=== PATIENT | male | born 1980 | race African-American/Black ===

== ENCOUNTER 2017-03-22 00:07 | Inpatient (IN) | payer MEDICARE ==
[2017-03-22] MEDS ORDERED: Ondansetron HCl/PF 4 MG/2 ML Vial ONE (00:32)
[2017-03-22] MEDS ORDERED: Ondansetron HCl/PF 4 MG/2 ML Vial IVP PRN (02:29)
[2017-03-22] MEDS ORDERED: D5 1/2 NS w/20 mEq KCL 1,000 ML IV SCH (02:29)
[2017-03-22] MEDS ORDERED: Ondansetron ODT 4 MG TAB SL PRN (02:29)
[2017-03-22] MEDS ORDERED: Ketorolac Tromethamine 30 MG/ML VIAL IVP PRN (02:31)
[2017-03-22] MEDS ORDERED: Bisacodyl 10 MG SUPP PR PRN (02:53)
[2017-03-22 02:56] VITALS: BMI 24.4
[2017-03-22] MEDS ORDERED: cefTRIAXone\\ROCEPHIN 1 GM in Sodium Chloride 0.9% 100 ML IVPB SCH (03:00)
[2017-03-22] MEDS: metroNIDAZOLE 500 MG in Premix Bag 1 BAG IVPB SCH ×2 (04:19→12:01)
[2017-03-22] MEDS: D5 1/2 NS w/40 mEq KCL 1,000 ML IV SCH ×3 (04:20→23:12)
[2017-03-22 05:37] LABS: #Basophils 0.1 thou/uL (0.0-0.2); #Eosinphils 0.1 thou/uL (0.0-0.7); #Lymphocytes 2.1 thou/uL (1.20-3.40); #Monocytes 1.1 thou/uL (0.11-0.59); #Neutrophils 10.9 thou/uL (1.40-6.50); %Basophils 0.5 % (0.0-1.0); %Eosinophils 0.5 % (0.0-10.0); %Lymphocytes 14.5 % (21.0-51.0); %Monocytes 7.9 % (0.0-10.0); Hematocrit 42.2 % (42.0-52.0); Mean Platelet Volume 7.7 fL (7.4-10.4); Red Blood Cell (RBC) Count 4.69 mill/uL (4.70-6.10); White Blood Cell (WBC) Count 14.2 thou/uL (4.8-10.8)
[2017-03-22 05:56] LABS: ALT (SGPT) Less than 7 U/L (8-55); AST (SGOT) 9 U/L (5-34); Alkaline Phosphatase 76 U/L (40-150); Anion Gap 13 mmol/L (10-20); BUN (Urea Nitrogen) 10 mg/dL (8.9-20.6); Bilirubin, Total 0.5 mg/dL (0.2-1.2); Calc. Creatinine Clearance 144 mL/min (70-130); Calcium 8.7 mg/dL (7.8-10.44); Carbon Dioxide 24 mmol/L (22-29); Chloride 108 mmol/L (98-107); Estimated GFR-MDRD Greater than 90; Globulin 3.1 g/dL (2.4-3.5); Protein, Total 6.6 g/dL (6.0-8.3)
--- NOTE | 2017-03-22 10:31 | HP-2 ---
DATE OF ADMISSION: 03/22/2017 ATTENDING PHYSICIAN: Dr. Chai Funez CODE STATUS: Full code. PRIMARY CARE PHYSICIAN: Evelyn berman. RESIDENT: [email or web address] - Dr. Madelaine Ziegler HISTORIAN: Patient. CHIEF COMPLAINT: Abdominal pain. HISTORY OF PRESENT ILLNESS: A 37-year-old male presents with left lower quadrant abdominal pain fo r 3-4 months, worsening constipation and obstipation over the past day. The patient was transferred from [place]. The patient endorses night sweats, subjective fevers and nausea and vomiting. The patient has vomited over 9 times today, nonbloody. ER: The patient received Zofran, Flagyl, Levaquin, and 40 of KCl and Dilaudid in the [place] [facility]. PAST MEDICAL HISTORY: Denies. PAST SURGICAL HISTORY: Left knee surgery. ALLERGIES: No known drug allergies. MEDICATIONS: No medications. FAMILY HISTORY: No family history of colorectal cancer. There is a family history of diabetes and hypertension in his mom. SOCIAL HISTORY: The patient smokes 1 pack per day. Denies alcohol use, denies drug use. REVIEW OF SYSTEMS: GENERAL: Positive for fevers and chills. Negative for weight changes, appetite changes, sleep nobles ges. RESPIRATORY: Denies cough, congestion, shortness of breath. CARDIOVASCULAR: Denies chest pain, palpitations, edema. GI: Endorses nausea, vomiting x9 times today, nonbloody. Denies diarrhea. Endorses constipation. Endorses abdominal pain, endorses obstipation. Last BM was yesterday. Endorses hiccups. Endorses thin pencil-like stools. : Denies incontinence, denies dysuria, denies polyuria. SKIN: Denies rashes or lesions. MUSCULOSKELETAL: Denies pain, tenderness and stiffness. NEURO: Denies weakness, numbness. PSYCHIATRIC: Denies anxiety, depression. The patient last ate in the morning on 03/21/2017. OBJECTIVE: VITAL SIGNS: Blood pressure 167/106, pulse 72, respiratory rate 16, T-max 98.2, pulse ox 100% on ro om air, current weight 84 kilograms. GENERAL: Alert and oriented x3, no apparent distress. Appropriately interactive. EYES: PERRLA, EOMI. ENT: Nasal mucosa within normal limits. Oropharynx within normal limits. NECK: Supple, no lymphadenopathy, no thyromegaly. CARDIOVASCULAR: Regular rate and rhythm. No murmur, no gallops. RESPIRATORY: Within normal limits, no retractions. Clear to auscultation bilaterally. SKIN: Warm and dry. ABDOMEN: Soft, mild left lower quadrant tenderness to palpation. Hypoactive bowel sounds. EXTREMITIES: No clubbing, cyanosis. MUSCULOSKELETAL: Structurally within normal limits. NEUROLOGIC: No focal deficits. GCS 15. PSYCH: Appropriate. LABORATORY DATA: 1. CBC; white blood cell count 14.4, hemoglobin 15.1, hematocrit 45.1, platelets 313. 2. Chemistries; sodium 144, potassium 2.9, chloride 108, bicarb 24, BUN 84, creatinine 0.9, glucose 119. 3. AST 13, ALT less than 6, alkaline phosphatase 97, total bilirubin 0.5, calcium 9.5, GFR greater than 90. 4. UA negative for blood, protein, leukocyte esterase, nitrites, ketones, glucose, red blood cells, white blood cells and bacteria. IMAGING: CT of the abdomen; sigmoid mass versus infection visualized in the sigmoid colon. Psoas m ass visualized, dilated colon proximal to mass in the sigmoid colon, no free fluid or lymphadenopath y. ASSESSMENT AND PLAN: 1. A 37-year-old male with no past medical history who presents with abdominal pain in the left low er quadrant for 4 months with a mass on CT, admitted for sigmoid mass, likely colorectal cancer. 2. Sigmoid mass, likely colorectal cancer. Consult GI and General Surgery in the morning, n.p.o. a t midnight for colonoscopy in the morning. Pain control with morphine q.4 h. and Zofran for nausea. 3. Hypokalemia at 2.9 secondary to vomiting. Started on D5 half normal saline plus 40 KCl fluids a nd KCl was repleted in [place]. Follow up labs in the morning. 4. Tobacco abuse, counseled on cessation.
--- NOTE | 2017-03-22 11:34 | PDOC.EVN ---
Attending Addendum - Attending Addendum I personally evaluated the patient and discussed the management with Dr. Emeka Ziegler. I agree with the History, Examination, Assessment and Plan documented in her History and Physical with any addition or exceptions noted below. Patient with new diagnosis of sigmoid colon mass versus less likely infection. Patient will be continued on antibiotic therapy for now. GI and General Surgery have been consulted. We will attempt to have CT images loaded into our system. No major evidence of infection or signs of systemic infection at this time. Will maintain pain control as needed and await further recs from GI/Surg.
--- NOTE | 2017-03-22 12:18 | CON ---
DATE OF CONSULTATION: 03/22/2017 REQUESTING PHYSICIAN: Dr. Cali Art. HISTORY OF PRESENT ILLNESS: This is a 37-year-old -[place] man who was transferred from an [facility] in [place] to [facility] yesterday. The patient arrived complaining of intermittent left lower quadrant abdominal pain, which has been present over the last 3-4 months. This has been associated with constipation. Over the last 24 hours; however, the patient reports unrelenting left lower quadrant abdominal pain associated with bloating and obstipation. He reports multiple episodes of nonbilious and nonbloody emesis about 8-9 times. Last bowel movement was 3 days ago. Last time he passed gas was also about 3 days ago. He admits to some chills, but no fevers. He denies any unexplained weight loss. He reports passing dark tarry stool over the last 3-4 months. The caliber of his stool has been ribbon like for about the same duration. PAST MEDICAL HISTORY: Denies any previous medical problems. PAST SURGICAL HISTORY: He denies any previous surgeries except for left knee surgery many years ago from a football injury. SOCIAL HISTORY: He is single. He is employed in the construction business. He admits to smoking 1 pack of cigarettes per day and has done so for about 15 years. He admits to occasional intake of ethanol in moderate amounts and denies any illicit drug abuse. FAMILY HISTORY: Notable for diabetes mellitus and essential hypertension in his mother. He denies any family history of cancer or any gastrointestinal disorders. PREHOSPITALIZATION MEDICATIONS: None. ALLERGIES: Patient denies any known drug allergies. REVIEW OF SYSTEMS: Ten point review of systems essentially unremarkable except for as stated in past medical history and chief complaint. PHYSICAL EXAMINATION: GENERAL: This reveals a 37-year-old normally developed man who is otherwise coherent and interactive and appears stated age. The patient is alert and oriented x3, appears to be in no significant acute distress at the time of my evaluation. VITAL SIGNS: Include blood pressure 139/89, pulse 60, respirations 16, temperature is 98.6 degrees Fahrenheit, oxygen saturation 97% on room air. HEENT: Reveals normocephalic and atraumatic. The pupils are equal, round, and reactive to light and accommodation. Extraocular muscles are intact bilaterally. No sclerae icterus is present. Oral mucosa is pink and moist. No lesions are noted. NECK: Supple. No palpable lymphadenopathy or thyromegaly present. HEART: Reveals regular rate and rhythm, no murmurs or gallops auscultated. LUNGS: Clear to auscultation bilaterally. His breathing is regular and unlabored. ABDOMEN: Soft and moderately distended. He has moderate tenderness to palpation without any gross rebound tenderness present. He has got left lower quadrant fullness with palpation. Liver and spleen are otherwise nonpalpable below costal margins. NEUROLOGIC: Reveals no focal deficits present. PERTINENT LABORATORY DATA: Today includes CBC with 14,200 white blood cells, hemoglobin 13.2, hematocrit is 42.2, platelet count is 290,000. Metabolic profile: Sodium 142, potassium is 3.2, chloride is 108, bicarbonate 24, BUN 10 , creatinine 0.84, glucose 106, total bilirubin 0.5, AST and ALT are normal at 9 and less than 7 respectively. Serum albumin is normal at 3.5. I reviewed the accompanying CT scan of the abdomen and pelvis from [place], which reveals multiple distended loops of small and large bowel with a transition zone in the sigmoid colon associated with an obstructing sigmoid colonic mass and surrounding lymphadenopathy. IMPRESSION: Acute large bowel obstruction secondary to sigmoid colonic mass, likely neoplastic. RECOMMENDATION: 1. Gastroenterology evaluation to include possible flexible proctosigmoidoscopy and biopsy of the lesion. 2. If the patient is unable to achieve reasonable bowel prep, we will more than likely proceed with exploratory laparotomy, sigmoidectomy with end- colostomy. The above findings and plan has been discussed with the patient who indicates understanding of the information given. I answered all his questions. Thank you again, Dr. Art, for allowing me the opportunity to participate in the care of this patient. LUIGI
--- NOTE | 2017-03-22 12:33 | RAD ---
KUB: Comparison: None. History: Mass. FINDINGS: Single view of the abdomen shows air filled loops of both large and small bowel. This is predominate ly colon. Contrast is seen in the bladder from recent contrast examination. IMPRESSION: Air filled loops of bowel may be secondary to a partial or complete bowel obstruction. POS: [facility]
[2017-03-22 12:42] LABS: PTT 26.4 SEC (22.9-36.1); Prothrombin Time 14.3 SEC (12.0-14.7)
[2017-03-22] MEDS ORDERED: Fleet Enema 133 ML BOT FS SCH (13:45)
[2017-03-22] MEDS ORDERED: Morphine Sulfate 2 MG/ML SYRINGE SLOW IVP PRN (15:00)
[2017-03-22] MEDS ORDERED: Ondansetron HCl/PF 8 MG in Sodium Chloride 0.9% 50 ML IVPB PRN (15:01)
[2017-03-22] MEDS ORDERED: Midazolam HCl 2 mg/2 ml Vial ONE (15:38)
[2017-03-22] MEDS ORDERED: Fentanyl 100 MCG/2 ML VIAL ONE (15:39)
[2017-03-22] MEDS ORDERED: Propofol 200 MG/20 ML VIAL ONE (15:58)
--- NOTE | 2017-03-22 19:33 | CON ---
DATE OF CONSULTATION: 03/22/2017 REASON FOR CONSULTATION: Request for colonoscopy. HISTORY OF PRESENT ILLNESS: Mr. Reyes is a 37-year-old gentleman who was admitted to the hospital an d transferred from [facility] where he presented with several days of vomiting and lower abd ominal pain. He had apparently 9 episodes of vomiting yesterday. He had a CAT scan in the outside emergency room that showed an obstructing sigmoid mass with proximal colon dilation. The patient st ates he has not passed gas in 2 days. He has had a noticed change in bowel function for several mon ths and typically he will have alternating diarrhea and constipation with some occasional left lower quadrant pain, but yesterday the pain was more intense than usual. He denies any weight loss. He has had some rectal bleeding in the past. He has been seen by General Surgery who requested colonos copy as well. The patient states he last threw up about 3 hours ago. PAST MEDICAL HISTORY: None. PAST SURGICAL HISTORY: Left knee surgery from a football injury. ALLERGIES: None known. MEDICATIONS AT HOME: None. FAMILY HISTORY: Negative for colorectal cancer or intestinal malignancies. SOCIAL HISTORY: The patient smokes a pack a day. Does not use drink or use drugs. REVIEW OF SYSTEMS: Negative for dysphagia or odynophagia. PRESENT MEDICATIONS: Dulcolax, Lovenox subcu, D5 half normal with 40 of K. PHYSICAL EXAMINATION: GENERAL: Patient is resting in bed. LUNGS: Clear. HEART: Heart is regular without clicks or murmurs. ABDOMEN: Soft, mild fullness in the left lower quadrant. There is no rebound. There is no guardin g. RECTAL: Deferred. IMAGING: Review of films, x-ray from today shows distention of the colon and to a lesser degree, sm all bowel. CAT scan from yesterday from [place] is not available, talked to the radiologist, and there is high grade obstruction in the sigmoid colon. LABORATORY DATA: White count 14.2, hemoglobin 13, platelet count 290. Sodium 142, potassium 3.2, g lucose 106. ASSESSMENT: Obstipation symptoms for several weeks followed by symptoms now of obstruction with vom iting, dilated colon and small bowel on CAT scan, inability to pass any stool or flatus over 24 hour s. This is concerning for malignancy as he has no overt pain or fever to suggest diverticulitis-lik e process. PLAN: 1. NG tube. 2. IV fluids. 3. The patient will not tolerate bowel prep at this time. He has got a high grade obstruction in h is colon, both by films and history and symptoms. We will proceed with flexible sigmoidoscopy and b iopsy today.
--- NOTE | 2017-03-23 00:25 | OP ---
PROCEDURE: Flexible sigmoidoscopy. POSTPROCEDURE DIAGNOSES: Obstructing colon mass, likely neoplastic at 25 cm from the anorectal verg e, multiple biopsies were obtained. RECOMMENDATIONS: Await biopsies, the patient will need surgery for resection. I do not think he wi ll be able to tolerate a prep. PROCEDURE IN DETAIL: After the patient was informed of the risks, benefits, possible complications of endoscopy including perforation, bleeding, reactions to medication, and aspiration, informed cons ent was obtained. Initially, plans were made for colonoscopy with the patient's history is that of vomiting 9 to 10 times per day over the last 24 hours. He said he has had no flatus over 2 days and his imaging plain films this morning showed significantly distended colon. NG tube has been ordere d by General Surgery. I initially cancelled that, but after reviewing his films, I had the nurses maricruz cramer that, and they said only 100 mL came back from that. The patient was not felt to be able to to lerate a bowel prep and was at high risk for aspiration, perforation, enema was given, a flexible si gmoidoscopy was performed showing obstructing mass in the colon, which appears neoplastic at about 2 5 to 30 cm from the anorectal verge in the lower sigmoid colon, this was unable to be passed with th e endoscope, biopsies were obtained, the scope was removed. The patient tolerated the procedure wel l with no complications. We will defer to General Surgery for timing and plan of surgery.
--- NOTE | 2017-03-23 06:39 | PDOC.FM ---
- Subjective Subjective: Patient is resting in bed this morning. He says he has abdominal pain that comes and goes. He is currently not in any pain. He has a NG tube in place and tolerating that. He states he does not have any chest pain, sob, fever, or chills. He said he didn't feel a thing during his flex sig yesterday with GI. He is awaiting the results of the biopsies. - Objective Vital Signs & Weight: Vital Signs (12 hours) Temp Pulse Resp BP BP Pulse Ox 03/23/17 04:00 98.5 F 62 18 140/78 95 03/22/17 20:00 98.9 F 64 16 03/22/17 19:05 98.9 F 64 16 158/95 H 95 Weight Admit Weight 83.9 kg Weight 83.9 kg I&O: 03/21/17 03/22/17 03/23/17 06:59 06:59 06:59 Intake Total 450 2750 Output Total 450 1225 Balance 0 1525 Result Diagrams: 03/22/17 05:19 03/22/17 05:19 <Cali Art - Last Filed: 03/23/17 08:50> - Objective Vital Signs & Weight: Vital Signs (12 hours) Temp Pulse Resp BP BP Pulse Ox 03/23/17 08:00 98.8 F 65 16 97 03/23/17 07:38 98.8 F 65 16 131/75 97 03/23/17 04:00 98.5 F 62 18 140/78 95 Weight Admit Weight 83.9 kg Weight 83.9 kg I&O: 03/22/17 03/23/17 03/24/17 06:59 06:59 06:59 Intake Total 450 2750 Output Total 450 1225 Balance 0 1525 Result Diagrams: 03/23/17 08:14 03/23/17 08:14 <Chai Funez - Last Filed: 03/23/17 12:00> Phys Exam - Physical Examination HEENT: moist MMs Neck: no nodes, no JVD Respiratory: no wheezing, clear to auscultation bilateral Cardiovascular: RRR, no significant murmur Gastrointestinal: soft, non-tender, no distention hypoactive bowel sounds Musculoskeletal: no edema, pulses present Neurological: non-focal, normal sensation, moves all 4 limbs Psychiatric: normal affect, A&O x 3 Skin: no rash <Cali Art - Last Filed: 03/23/17 08:50> Dx/Plan (1) Mass of colon Code(s): K63.9 - DISEASE OF INTESTINE, UNSPECIFIED Status: Acute Plan: -Mass found on CT scan -GI found obstucting mass at 25cm from anorectal verge. -Biopsies pending. (2) Obstruction of colon Code(s): K56.60 - UNSPECIFIED INTESTINAL OBSTRUCTION Status: Acute Plan: -NG tube placed -NPO -Pending biopsies -General surgery will plan for resection. - Plan Plan: Patient likely has a neoplasm pending biopsies. General surgery will plan to resect neoplasm and repair is dependent upon biopsies. <Cali Art - Last Filed: 03/23/17 08:50> Attending Addendum - Attending Addendum I personally evaluated the patient and discussed the management with Dr. Art. I agree with the History, Examination, Assessment and Plan documented above with any addition or exceptions noted below. Patient with colonoscopy yesterday with biopsies. He is going for resection of mass with Gen Surg today. Labs stable. <Chai Funez - Last Filed: 03/23/17 12:00>
[2017-03-23] MEDS: D5 1/2 NS w/40 mEq KCL 1,000 ML IV SCH ×4 (07:07→20:17)
[2017-03-23 08:34] LABS: #Eosinphils 0.2 thou/uL (0.0-0.7); #Lymphocytes 2.2 thou/uL (1.20-3.40); #Monocytes 1.2 thou/uL (0.11-0.59); #Neutrophils 9.4 thou/uL (1.40-6.50); %Basophils 0.3 % (0.0-1.0); %Eosinophils 1.5 % (0.0-10.0); %Lymphocytes 16.8 % (21.0-51.0); %Monocytes 9.4 % (0.0-10.0); Hematocrit 43.1 % (42.0-52.0); Mean Platelet Volume 7.8 fL (7.4-10.4); Red Blood Cell (RBC) Count 4.74 mill/uL (4.70-6.10); White Blood Cell (WBC) Count 13.1 thou/uL (4.8-10.8)
[2017-03-23] MEDS: Enoxaparin Sodium 40 MG/0.4 ML SYRINGE SC SCH (08:38)
[2017-03-23 08:49] LABS: ALT (SGPT) Less than 7 U/L (8-55); AST (SGOT) 10 U/L (5-34); Alkaline Phosphatase 75 U/L (40-150); Anion Gap 12 mmol/L (10-20); BUN (Urea Nitrogen) 9 mg/dL (8.9-20.6); Bilirubin, Total 0.6 mg/dL (0.2-1.2); Calc. Creatinine Clearance 143 mL/min (70-130); Calcium 9.1 mg/dL (7.8-10.44); Carbon Dioxide 22 mmol/L (22-29); Chloride 110 mmol/L (98-107); Estimated GFR-MDRD Greater than 90; Globulin 3.2 g/dL (2.4-3.5); Protein, Total 6.8 g/dL (6.0-8.3)
[2017-03-23] MEDS ORDERED: Fentanyl 100 MCG/2 ML VIAL ONE ×4 (09:53→14:09)
[2017-03-23] MEDS ORDERED: Midazolam HCl 2 mg/2 ml Vial ONE ×2 (09:53→10:33)
[2017-03-23] MEDS ORDERED: Ondansetron HCl/PF 4 MG/2 ML Vial ONE (10:04)
--- NOTE | 2017-03-23 10:11 | PRG-2 ---
DATE OF SERVICE: 03/23/2017 SUBJECTIVE: The patient is in his room resting at this time. He denies any complaints at this time . He has NG tube in place. He tolerated scope well yesterday. He is here after having abdominal p ain for the last 3-4 months with bloating and obstipation. He denies any other concerns or complain ts at this time. I talked to him about going to surgery today. The patient did not have any more q uestions at this time. OBJECTIVE: VITAL SIGNS: Temperature of 98.8, pulse is 65, respirations are 16, O2 sat is 97, blood pressure 13 1/75. LABORATORY DATA: White blood cell count 13.1, hemoglobin 13.5, hematocrit 43.1, platelet count of 3 00, sodium is 140, potassium 3.8, chloride 110, CO2 22, anion gap is 12, BUN is 9, creatinine 0.85, glucose is 131, calcium 9.1, total bilirubin 0.6, AST is 10, ALT is less than 7. Alkaline phosphata se is 75. Serum total protein 6.8, albumin is 3.6. CEA was 12.42. IMAGING: Abdomen x-ray showed air filled loops of bowel maybe secondary to partial or complete alfreda l obstruction performed on 03/22/2017. Biopsies of colon mass are pending. ASSESSMENT: An acute large bowel obstruction secondary to sigmoid colonic mass, likely neoplastic. ASSESSMENT AND PLAN: Flexible sigmoidoscopy was performed yesterday by GI, Dr. Steen, showed a mas s 25-30 cm up from the anorectal verge. He was unable to pass the endoscope so a complete obstructi ng mass biopsies were taken. We are still awaiting pathology from biopsies. The plan today is to take him back to surgery for a left-sided colectomy of the sigmoid colon and fo r the mass, we will send for pathology then. The patient, Chemo Reyes was seen with Dr. Kimbrough. Plan of care was discussed with Dr. Kimbrough as well.
[2017-03-23] MEDS ORDERED: Ondansetron HCl/PF 4 MG/2 ML Vial IVP PRN ×2 (10:30→13:33)
[2017-03-23] MEDS ORDERED: diphenhydrAMINE HCl 50 MG/ML 1 ML VIAL IVP PRN (10:30)
[2017-03-23] MEDS ORDERED: Zolpidem Tartrate 5 MG TAB PO PRN (10:30)
[2017-03-23] MEDS ORDERED: diphenhydrAMINE HCl 25 MG CAP PO PRN (10:30)
[2017-03-23] MEDS ORDERED: Fentanyl/Bupivacaine 250 ML in Premix Bag 1 BAG EPIDURAL SCH (10:30)
[2017-03-23] MEDS ORDERED: HYDROcodone/Acetaminophen 5/325 mg Tablet PO PRN ×2 (10:30)
[2017-03-23] MEDS ORDERED: Promethazine HCl 25 MG SUPP PR PRN (10:30)
[2017-03-23] MEDS ORDERED: Promethazine HCl 25 MG/ML VIAL IM PRN (10:30)
[2017-03-23] MEDS ORDERED: Ertapenem 1 GM in Sodium Chloride 0.9% 100 ML IVPB SCH (10:30)
[2017-03-23] MEDS ORDERED: Naloxone HCl 0.4 mg/ml Vial IVP PRN (10:30)
[2017-03-23] MEDS ORDERED: traMADol HCl 50 MG TAB PO PRN ×2 (10:30)
[2017-03-23] MEDS ORDERED: diphenhydrAMINE HCl 50 MG/ML 1 ML VIAL IM PRN (10:30)
[2017-03-23] MEDS ORDERED: Naloxone HCl 0.4 mg/ml Vial IV PRN (10:30)
[2017-03-23] MEDS ORDERED: Eucerin (Mineral Oil/Petrolatum,White) 30 gm Jar TOP PRN (10:30)
[2017-03-23] MEDS ORDERED: Bupivacaine 0.25% 10 ML VIAL EPIDURAL PRN (10:30)
[2017-03-23] MEDS ORDERED: Ropivacaine 0.2% HCl/PF 20 ML ONE (10:33)
[2017-03-23] MEDS ORDERED: Phenylephrine 10 MG/NS 250 ML 250 ML ONE (10:34)
[2017-03-23] MEDS ORDERED: Glycopyrrolate 0.2 MG/ML 5 ML SYRINGE ONE (11:09)
[2017-03-23] MEDS ORDERED: Lidocaine 2% PF 10 ML AMP (For Epidural Use) ONE (11:09)
[2017-03-23] MEDS ORDERED: Succinylcholine Chloride 20 MG/ML 10 ml SYRINGE FS ONE (11:09)
[2017-03-23] MEDS ORDERED: PHENYLEPHRINE-NS 100 MCG/ML 10 ML SYRINGE ONE (11:09)
[2017-03-23] MEDS ORDERED: Propofol 200 MG/20 ML VIAL ONE (11:09)
[2017-03-23] MEDS ORDERED: Fentanyl/Bupivacaine 250 ML EPIDURAL ONE (13:40)
[2017-03-23] MEDS ORDERED: Bupivacaine 0.25% HCL 30 ML VIAL ONE (13:41)
[2017-03-23] MEDS ORDERED: Promethazine HCl 25 MG/ML VIAL ONE (13:42)
--- NOTE | 2017-03-23 14:23 | OP ---
DATE OF OPERATION: 03/23/2017 PREOPERATIVE DIAGNOSES: 1. Colon cancer. 2. Large bowel obstruction secondary to sigmoid colon cancer. POSTOPERATIVE DIAGNOSES: 1. Colon cancer. 2. Large bowel obstruction secondary to sigmoid colon cancer. SURGERY PERFORMED: 1. Exploratory laparotomy. 2. Sigmoidectomy. 3. End colostomy. SURGEON: Kirk Kimbrough D.O. ANESTHESIA: General endotracheal. ESTIMATED BLOOD LOSS: 50 mL. FLUIDS GIVEN: 1500 mL crystalloids. SPONGE AND INSTRUMENT COUNT: Certified as correct x2. COMPLICATIONS: None apparent at time of operation. INDICATIONS FOR PROCEDURE: This is a 37-year-old man who presented with abdominal pain with distention and obstipation. Clinical and radiographic examination was consistent with obs tructing sigmoid colon mass. Flexible proctosigmoidoscopy was performed yesterday, at which time the endoscopist was unable to pa ss the sigmoid colon mass. The patient is brought to the operating room today for exploration and sigmoidectomy. FINDINGS: Consistent with a circumferential obstructing large sigmoid colon mass. There are some e nlarged adjacent lymph nodes. No palpable evidence of distant metastasis noted. DESCRIPTION OF PROCEDURE: Informed consent obtained from the patient who was brought to the operati ng room and placed in spine position. Following general anesthesia, previous Singletary catheter was hawa karen to bedside drain. Nasogastric tube was placed to wall suction. Abdomen is sterilely prepped an d draped in the usual fashion. A midline incision is made using #10 scalpel. The incision is brandon ed through subcutaneous tissues maintaining hemostasis using thermocautery. Fascia was incised in m idline exposing the peritoneum beneath which was grasped x2 with hemostats. The peritoneal cavity w as sharply entered using Metzenbaum scissors. Incision was then extended superiorly and inferiorly. Bookwalter retractor was put in place to gain exposure. Markedly dilated small and large bowel we re immediately encountered. Small bowel was run from the ligament of Treitz down to terminal ileum. No pathology identified. Markedly dilated cecum was noted with appendix which was in normal anato de location. The large intestine was then examined from the cecum through the ascending, transvers e, descending, down to sigmoid colon where there was a circumferential obstructing mass. The bowel beyond the obstructive mass appeared quite decompressed down to the rectum. At this juncture, we el ected to proceed with a sigmoidectomy. The left colon was mobilized along the white line of Toldt. I placed a rent approximately 6 cm dist al to the obstructing sigmoid colon mass. This rent through the mesentery was accomplished using graeme chávez. A contour stapler was then introduced and the bowel was divided. I then placed another ronna t at approximately 10 cm proximal to the involved large colon through this, the contour stapler was introduced and the bowel was divided. The mesentery of the specimen was serially divided using Liga Sure with good hemostasis. The sigmoid colon specimen was passed off the operative field and sent t o pathology. The rectal stump was tagged with 2-0 Prolene at 2 ends. At this juncture, the liver w as palpated free of any abnormalities. Normal gallbladder is noted in the usual anatomic location. The spleen and stomach were also palpated free of any abnormality. We then decided to proceed with the rest of the operation. At this juncture, a core incision was made in the left lower quadrant in the area chosen for the col ostomy. This was accomplished using a #10 scalpel. The incision is carried through subcutaneous tissues judy ntaining hemostasis using thermocautery. Incision was then made at the fascia using cautery Tonsil clamp was introduced through this incision and introduced into the peritoneal cavity. The defect w as dilated to 3 fingerbreadths. [place] forceps was introduced into the peritoneal cavity through t his core incision, grasping the staple end of the descending colon which was pulled through the inci rasta. The bowel was secured within the abdominal cavity using 3-0 silk suture at 3 points. A large piece of Seprafilm was then placed over the rectal stump prior to returning the small bowel to normal basilio omic location. A second large piece of Seprafilm was placed over the small bowel and omentum was th en drawn over the remainder of the viscera. After sponge and instrument counts were certified as correct x2. Fascia was approximated in the mid line using a running stitch of #1 single stranded PDS. The subcutaneous tissues were pulse lavaged with 2 liters of saline. Using a fresh set the skin was closed using a running stitch of 4-0 Monocr yl suture in subcuticular fashion. Dermabond was applied over the incision. I then turned my atten tion to the colostomy site. The staple end of the exiting descending colon was excised using [place] s cissors. A functional Mary Kay colostomy was then affected using interrupted sutures of 2-0 chromic. Ostomy appliance was put in place. The patient tolerated the operation without any apparent complication and was returned to the [facility] room in satisfactory condition.
[2017-03-23] MEDS ORDERED: Albumin 5% 500 ML ONE (14:41)
[2017-03-23] MEDS: Ertapenem 1 GM in Sodium Chloride 0.9% 100 ML IVPB SCH (16:54)
[2017-03-23] MEDS: Ketorolac Tromethamine 30 MG/ML VIAL IVP PRN (20:18)
--- NOTE | 2017-03-24 00:50 | PRG ---
DATE, OF SERVICE: 03/23/2017 SUBJECTIVE: Mr. Reyes had surgery today. Apparently, there is some adenopathy around the colon mass . He feels much better. PHYSICAL EXAMINATION: VITAL SIGNS: Temperature is 99, pulse 64, blood pressure 157/84. ABDOMEN: Soft, nontender. There is a colostomy left lower quadrant. LABORATORY DATA: White count is 13, hemoglobin is 13.5, and platelet count 300. Basic metabolic pr ofile is normal. CEA is 12. ASSESSMENT: Obstructing colon mass lower sigmoid colon, status post resection and colostomy. RECOMMENDATIONS: 1. Await histopathology, adjuvant chemotherapy if a candidate. 2. The patient will need full colonoscopy in the next 6 months to evaluate the rest of the colon.
[2017-03-24] MEDS: Ketorolac Tromethamine 30 MG/ML VIAL IVP PRN ×2 (05:38→20:47)
[2017-03-24] MEDS: D5 1/2 NS w/40 mEq KCL 1,000 ML IV SCH ×2 (05:38→16:44)
[2017-03-24 05:45] LABS: ALT (SGPT) Less than 7 U/L (8-55); AST (SGOT) 18 U/L (5-34); Alkaline Phosphatase 56 U/L (40-150); Anion Gap 12 mmol/L (10-20); BUN (Urea Nitrogen) 14 mg/dL (8.9-20.6); Bilirubin, Total 0.9 mg/dL (0.2-1.2); Calc. Creatinine Clearance 112 mL/min (70-130); Calcium 8.5 mg/dL (7.8-10.44); Carbon Dioxide 23 mmol/L (22-29); Chloride 110 mmol/L (98-107); Estimated GFR-MDRD Greater than 90; Globulin 2.6 g/dL (2.4-3.5); Magnesium 1.9 mg/dL (1.6-2.6); Phosphorus 2.7 mg/dL (2.3-4.7); Protein, Total 5.9 g/dL (6.0-8.3)
[2017-03-24 05:46] LABS: Band 14 % (5-11); Hematocrit 42.9 % (42.0-52.0); Mean Platelet Volume 7.6 fL (7.4-10.4); Neutrophil 70 % (42-75); Reactive Lymphocytes 1 % (0-10); Red Blood Cell (RBC) Count 4.71 mill/uL (4.70-6.10); White Blood Cell (WBC) Count 19.2 thou/uL (4.8-10.8)
--- NOTE | 2017-03-24 06:51 | PDOC.FM ---
- Subjective Subjective: Patient is s/p sigmoidectomy with end colostomy. He states his pain is well controlled with his epidural. He states his BMs are moving and has had is ostomy bag changed twice since the procedure. He notes that he has the most pain when he gets up and walks. He still has the NG tube in place and that bothers him. He denies chest pain, sob, n/v/d. He denies any lightheadedness or cough. He is wanting to drink an ice cold soda to quench his thirst. - Objective Vital Signs & Weight: Vital Signs (12 hours) Temp Pulse Resp BP Pulse Ox 03/24/17 04:00 99.4 F 78 18 128/71 94 L 03/24/17 01:43 96 03/24/17 00:35 98.8 F 68 16 130/75 97 03/23/17 20:10 98.2 F 68 16 136/75 93 L Weight Admit Weight 83.9 kg Weight 83.9 kg I&O: 03/22/17 03/23/17 03/24/17 06:59 06:59 06:59 Intake Total 450 2750 2075 Output Total 450 1225 1825 Balance 0 1525 250 Result Diagrams: 03/24/17 04:46 03/24/17 04:46 <Cali Art - Last Filed: 03/24/17 06:49> - Objective Vital Signs & Weight: Vital Signs (12 hours) Temp Pulse Resp BP Pulse Ox 03/24/17 07:35 99.2 F 75 18 118/70 92 L 03/24/17 04:00 99.4 F 78 18 128/71 94 L 03/24/17 01:43 96 03/24/17 00:35 98.8 F 68 16 130/75 97 Weight Admit Weight 83.9 kg Weight 83.9 kg I&O: 03/23/17 03/24/17 03/25/17 06:59 06:59 06:59 Intake Total 2750 2075 Output Total 1225 1825 Balance 1525 250 Result Diagrams: 03/24/17 04:46 03/24/17 04:46 <Chai Funez - Last Filed: 03/24/17 11:15> Phys Exam - Physical Examination HEENT: PERRLA Neck: no nodes, supple Respiratory: no wheezing, clear to auscultation bilateral Cardiovascular: RRR, no significant murmur Gastrointestinal: soft, no distention, positive bowel sounds Large linear incision midline from procedure. Ostomy bag in place. Musculoskeletal: no edema, pulses present Neurological: non-focal, normal sensation, moves all 4 limbs Lymphatic: no nodes Psychiatric: normal affect, A&O x 3 Skin: no rash <Cali Art - Last Filed: 03/24/17 06:49> Dx/Plan (1) Mass of colon Code(s): K63.9 - DISEASE OF INTESTINE, UNSPECIFIED Status: Acute Plan: -Mass found on CT scan -GI found obstucting mass at 25cm from anorectal verge. -Biopsies pending. -s/p sigmoidectomy and end colostomy -Oncology has been consulted. -Monitor pain control. (2) Obstruction of colon Code(s): K56.60 - UNSPECIFIED INTESTINAL OBSTRUCTION Status: Acute Plan: -NG tube placed -NPO -Pending biopsies -s/p sigmoidectomy with end colostomy -Resolved with surgery. <Cali Art - Last Filed: 03/24/17 06:49> Attending Addendum - Attending Addendum I personally evaluated the patient and discussed the management with Dr. Art. I agree with the History, Examination, Assessment and Plan documented above with any addition or exceptions noted below. Patient doing well today. Reports good pain control. He is POD 1 s/p sigmoidectomy and colostomy. Appreciate GI assistance. Awaiting pathology for further oncology staging and recs regarding future treatment. Recommend fluid change to D5 as patient continues NPO. <Chai Funez - Last Filed: 03/24/17 11:15>
[2017-03-24] MEDS ORDERED: Potassium Chloride 20 MEQ TAB PO SCH (07:30)
[2017-03-24] MEDS: Enoxaparin Sodium 40 MG/0.4 ML SYRINGE SC SCH (08:58)
[2017-03-24] MEDS ORDERED: Potassium Chloride 40 MEQ in Sodium Chloride 0.9% 500 ML IVPB SCH (10:45)
[2017-03-24] MEDS: Lactated Ringer's 1,000 ML IV SCH ×5 (12:53→21:43)
[2017-03-24] MEDS: Ertapenem 1 GM in Sodium Chloride 0.9% 100 ML IVPB SCH (14:01)
--- NOTE | 2017-03-24 20:35 | CON ---
DATE OF CONSULTATION: 03/24/2017 REASON FOR CONSULTATION: Colon cancer. HISTORY OF PRESENT ILLNESS: Mr. Reyes is a 37-year-old -[place] male who presented to the [facility] with a complaint of 3-4 months of lower abdominal pain. He had increasing diarrhea, nausea, and vomiting which was significantly worsened on the day of presentation. In the [facility], he had a CT of the abdomen and pelvis with IV contrast. He had irregular colonic thickening which involved 8 cm of the sigmoid colon. He had dilation of the colon proximal to the area. He was transferred to this facility and Dr. Steen performed a flexible sigmoidostomy. There was an obstructing colon mass at 25 cm from the anorectal verge; biopsy returned moderately differentiated invasive adenocarcinoma. Dr. Kimbrough then performed a sigmoidectomy with colostomy. Pathology is currently pending. We were asked to see the patient regarding his colon cancer. Patient has been up ambulating in the hallway; however, he still has an NG tube in place and is tolerating ice chips only. He has a QUALITY PROCESS AUDITOR for pain control. He denies any weight loss over the last several months, he endorses an excellent appetite. He states that 20 minutes after eating he would have a diarrhea stool and his abdominal pain would be relieved. PAST MEDICAL HISTORY: None. PAST SURGICAL HISTORY: Left knee surgery. ALLERGIES: No known drug allergies. HOME MEDICATIONS: None. FAMILY HISTORY: Denies any history of colorectal cancer. SOCIAL HISTORY: Engaged, has 6 children. Smokes a pack of cigarettes daily. Alcohol use daily. No illicit drug use. REVIEW OF SYSTEMS: Constitutional: Denies fever, chills, night sweats, recent weight loss or gain. Eyes: No blurred or double vision. ENT: No pain, hoarseness, sore throat, or dysphagia. Cardiovascular: No chest pain, palpitations or syncope. Respiratory: Denies shortness of breath, dyspnea on exertion or orthopnea. Gastrointestinal: Positive for nausea and abdominal pain. Genitourinary: No dysuria or hematuria. Musculoskeletal: No joint or back pain. Skin: No rash or pruritus. Hematologic: No bleeding, bruising or clotting. Neurologic: Denies headache, weakness, numbness, and tingling or seizure activity. Psychiatric: Denies anxiety or depression. PHYSICAL EXAMINATION: VITAL SIGNS: Temperature is 97.4, pulse is 72, and respiratory rate 16, blood pressure is 124/70, he is 93% on room air. GENERAL: Well-developed, well-nourished male in no acute distress. HEENT: Normocephalic, atraumatic. Pupils equal and reactive to light. NECK: Supple. CARDIOVASCULAR: Regular rate and rhythm. LUNGS: Clear to auscultation. ABDOMEN: Midline incision. Colostomy in the left lower quadrant. He has an NG tube in place to suction. EXTREMITIES: No clubbing, cyanosis or edema. GENITOURINARY: He has a Singletary catheter in place with dark yellow urine. SKIN: No rash. HEMATOLOGIC: No petechia or purpura. NEUROLOGICAL: Nonfocal. PSYCHIATRIC: The patient is alert and oriented and appropriate. PERTINENT LABORATORY AND X-RAYS: Current WBCs are 19.2, hemoglobin 13.3, hematocrit 42.9, platelet count is 269,000. He has got 70% neutrophils, 14% bands, 6% lymphocytes. PT is 14.3, INR is 1.1, and PTT is 26.4. Sodium is 142 , potassium 3.4, chloride 110, CO2 is 23, BUN is 14, creatinine 0.08, calcium 8.5, phosphorus 2.7, magnesium 1.9, total bilirubin is 0.9, AST is 18, ALT is less than 7, alkaline phosphatase is 56, serum total protein 5.9, albumin 3.3, globulin 2.6. CEA is 12.42. Radiology per HPI. 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 DISCUSSION: The patient will likely have stage III disease. We will wait for the final pathology to determine complete stage. He does need a chest CT scan at some point. I will wait until his pain is better controlled and the NG tube is out. He will likely need a MediPort for chemotherapy. We discussed briefly chemotherapy expectations and side effects. He will need to follow up in the clinic in about 2 weeks after discharge for further discussion. Thank you for the consult. LUIGI
--- NOTE | 2017-03-24 21:11 | PRG ---
DATE OF SERVICE: 03/24/2017 SUBJECTIVE: Mr. Reyes is without complaints today. He is having some flatus in his bag. OBJECTIVE VITAL SIGNS: Temperature is 98, T-max 99, pulse 72, blood pressure 124/74. LUNGS: Clear. ABDOMEN: Nontender. There is gas in the colostomy bag. LABORATORY DATA: White count is 19,000 today, hemoglobin is 13, platelet count is 269. BUN and cre atinine are 14 and 1.08. TA was 12. ASSESSMENT: 1. Obstructing colon cancer, status post resection. 2. He has got some gas in the ostomy with no bleeding. 3. Colon cancer by biopsy. Final pathology resection is pending. RECOMMENDATIONS: 1. Repeat colonoscopy within next 6 months. 2. Patient's first colorectal cancer screening at age 21 with colonoscopy. 3. At this time, we will follow for this. Thank you for allowing us to participate in this patient's care. Please do not hesitate to contact me. We will defer post-surgical management when he eats and when Singletary was removed with General Gentry gurpreet.
[2017-03-25] MEDS: D5 1/2 NS w/40 mEq KCL 1,000 ML IV SCH ×3 (00:12→12:03)
[2017-03-25] MEDS ORDERED: Sodium Chloride 0.9% 1,000 ML IV SCH (01:00)
[2017-03-25 05:41] LABS: Anion Gap 13 mmol/L (10-20); BUN (Urea Nitrogen) 17 mg/dL (8.9-20.6); Calc. Creatinine Clearance 122 mL/min (70-130); Calcium 8.9 mg/dL (7.8-10.44); Carbon Dioxide 24 mmol/L (22-29); Chloride 110 mmol/L (98-107); Estimated GFR-MDRD Greater than 90; Magnesium 2.3 mg/dL (1.6-2.6)
[2017-03-25] MEDS ORDERED: Potassium Chloride 20 MEQ TAB PO SCH (06:15)
[2017-03-25] MEDS ORDERED: Potassium Chloride 40 MEQ in Sodium Chloride 0.9% 500 ML IVPB SCH (06:45)
--- NOTE | 2017-03-25 06:52 | PDOC.FM ---
- Subjective Subjective: Patient had a good night, but states he feels dehydrated. He states he has no pain. He denies chest pain, sob, n/v. He has had a lot of output from his ostomy bag. He states he might have had a fever overnight, but the nurse gave him a cool damp rag and it resolved it. He has no other complaints other than wanting to drink a soda. - Objective Vital Signs & Weight: Vital Signs (12 hours) Temp Pulse Resp BP Pulse Ox 03/25/17 04:31 98.3 F 84 17 133/77 98 03/24/17 23:49 100.3 F H 81 17 126/76 92 L 03/24/17 21:00 97.9 F 03/24/17 20:45 100.2 F H 96 17 92 L 03/24/17 20:12 100.2 F H 96 17 149/80 H 91 L Weight Admit Weight 83.9 kg Weight 83.9 kg I&O: 03/23/17 03/24/17 03/25/17 06:59 06:59 06:59 Intake Total 2750 5 3750 Output Total 1225 1825 7135 Balance 152 250 -2902 Result Diagrams: 03/24/17 04:46 03/25/17 04:30 <Cali Art - Last Filed: 03/25/17 08:41> - Objective Vital Signs & Weight: Vital Signs (12 hours) Temp Pulse Resp BP Pulse Ox 03/25/17 13:00 99.8 F H 88 16 142/84 H 03/25/17 08:00 99.8 F H 88 16 120/68 92 L 03/25/17 04:31 98.3 F 84 17 133/77 98 Weight Admit Weight 83.9 kg Weight 83.9 kg I&O: 03/24/17 03/25/17 03/26/17 06:59 06:59 06:59 Intake Total 2075 3750 Output Total 1825 7135 Balance 250 3385 Result Diagrams: 03/24/17 04:46 03/25/17 10:38 <Chai Funez - Last Filed: 03/25/17 14:34> Phys Exam - Physical Examination Neck: no nodes, supple Respiratory: no wheezing, clear to auscultation bilateral Cardiovascular: RRR, no significant murmur Gastrointestinal: soft, positive bowel sounds Musculoskeletal: no edema, pulses present Neurological: normal sensation, moves all 4 limbs Psychiatric: normal affect, A&O x 3 <Cali Art - Last Filed: 03/25/17 08:41> Dx/Plan (1) Mass of colon Code(s): K63.9 - DISEASE OF INTESTINE, UNSPECIFIED Status: Acute Plan: -Mass found on CT scan -GI found obstucting mass at 25cm from anorectal verge. -Biopsy shows invasive adenocarcinoma. -s/p sigmoidectomy and end colostomy -Oncology has been consulted. -Monitor pain control. (2) Obstruction of colon Code(s): K56.60 - UNSPECIFIED INTESTINAL OBSTRUCTION Status: Acute Plan: -NG tube placed -NPO -Pending biopsies -s/p sigmoidectomy with end colostomy -Resolved with surgery. (3) Hypokalemia Code(s): E87.6 - HYPOKALEMIA Status: Acute Plan: -Potassium 2.9 today. -NPO -gave 40 mEq IVP -Will monitor with BMP at 11:00 -Labelling Machine Operator consultation and General Surgery Recommendations - Plan Plan: Will await Dr. Kimbrough's recs on electrolyte replacement and NPO status. <Cali Art - Last Filed: 03/25/17 08:41> Attending Addendum - Attending Addendum I personally evaluated the patient and discussed the management with Dr. Art. I agree with the History, Examination, Assessment and Plan documented above with any addition or exceptions noted below. Patient doing well today. Has low grade temp but that is likely 2/2 poor air entry and immobility. Encouraged IS use and ambulation. Continues to have high output through NG tube. Denies pain. Continue current mgmt per surgery. Oncology has seen and will stage patient in the next few days. Pathology shows colon adenocarcinoma. <Chai Funez - Last Filed: 03/25/17 14:34>
[2017-03-25] MEDS ORDERED: Fentanyl/Bupivacaine 250 ML in Premix Bag 1 BAG EPIDURAL SCH (11:00)
[2017-03-25 11:10] LABS: Anion Gap 11 mmol/L (10-20); BUN (Urea Nitrogen) 16 mg/dL (8.9-20.6); Calc. Creatinine Clearance 139 mL/min (70-130); Calcium 8.8 mg/dL (7.8-10.44); Carbon Dioxide 24 mmol/L (22-29); Chloride 113 mmol/L (98-107); Estimated GFR-MDRD Greater than 90
[2017-03-25] MEDS ORDERED: Promethazine HCl 25 MG/ML VIAL IM PRN ×2 (11:41→15:42)
[2017-03-25] MEDS ORDERED: Ondansetron HCl/PF 4 MG/2 ML Vial IVP PRN ×2 (11:41→15:42)
[2017-03-25] MEDS ORDERED: Naloxone HCl 0.4 mg/ml Vial IV PRN (11:41)
[2017-03-25] MEDS ORDERED: diphenhydrAMINE HCl 25 MG CAP PO PRN (11:41)
[2017-03-25] MEDS ORDERED: diphenhydrAMINE HCl 50 MG/ML 1 ML VIAL IM PRN (11:41)
[2017-03-25] MEDS ORDERED: diphenhydrAMINE HCl 50 MG/ML 1 ML VIAL IVP PRN (11:41)
[2017-03-25] MEDS ORDERED: Communication Order-Pharmacy FS SCH (11:45)
[2017-03-25] MEDS ORDERED: Bupivacaine PF 0.5% 30 ML VIAL ONE (13:11)
[2017-03-25] MEDS ORDERED: Bupivacaine HCl 0.5%/Epinephrine 1:200,000/PF 30 ml Vial ONE (13:12)
[2017-03-25] MEDS: Ketorolac Tromethamine 30 MG/ML VIAL IVP SCH ×2 (13:18→18:18)
[2017-03-25] MEDS ORDERED: Midazolam HCl 2 mg/2 ml Vial ONE (13:20)
[2017-03-25] MEDS ORDERED: Fentanyl 100 MCG/2 ML VIAL ONE ×6 (13:20→16:23)
[2017-03-25] MEDS ORDERED: Potassium Chloride 40 MEQ in Premix Bag 1 BAG IVPB SCH (13:45)
[2017-03-25] MEDS ORDERED: Potassium Chloride 40 MEQ, Admixture Fee 1 EACH in Sodium Chloride 0.9% 250 ML 250 ML IVPB SCH (14:00)
[2017-03-25] MEDS ORDERED: Succinylcholine Chloride 20 MG/ML 10 ml SYRINGE FS ONE (14:01)
[2017-03-25] MEDS ORDERED: Lidocaine 2% PF 10 ML AMP (For Epidural Use) ONE (14:01)
[2017-03-25] MEDS ORDERED: Propofol 200 MG/20 ML VIAL ONE (14:01)
[2017-03-25] MEDS ORDERED: Glycopyrrolate 0.2 MG/ML 5 ML SYRINGE ONE (14:01)
--- NOTE | 2017-03-25 14:24 | PDOC.EVN ---
Event Note - Event Note Event Note: Nurse attempted to page residents this morning about critical value. However, residents attempted multiple times to return page, but was left with a number that would not work. I was on the floor to see the patient after being notified of critical value, made appropriate changes to the patient's medications. The patient did not have any adverse event because of this event. We appreciate all of the work the nurses do and hopefully next time this will not occur.
[2017-03-25] MEDS ORDERED: Ondansetron HCl/PF 4 MG/2 ML Vial ONE (15:40)
[2017-03-25] MEDS ORDERED: Promethazine HCl 25 MG/ML VIAL SLOW IVP PRN (15:42)
[2017-03-25] MEDS ORDERED: Meperidine HCl/PF 25 MG/ML VIAL SLOW IVP PRN (15:42)
[2017-03-25] MEDS ORDERED: HYDROmorphone 2 MG/ML VIAL SLOW IVP PRN (15:42)
[2017-03-25] MEDS ORDERED: Promethazine HCl 25 MG/ML VIAL ONE (16:00)
[2017-03-25] MEDS ORDERED: HYDROmorphone HCl/PF 0.1 MG/ML 100 ML ONE (16:27)
[2017-03-25] MEDS: Piperacillin/Tazobactam 3.375 GM in Sodium Chloride 0.9% 100 ML IVPB SCH (18:19)
[2017-03-25] MEDS: Enoxaparin Sodium 40 MG/0.4 ML SYRINGE SC SCH (18:20)
--- NOTE | 2017-03-25 20:12 | OP ---
DATE OF OPERATION: 03/25/2017 PREOPERATIVE DIAGNOSES: 1. Colon cancer, status post sigmoidectomy with end colostomy. 2. Ischemic colostomy. POSTOPERATIVE DIAGNOSES: 1. Colon cancer, status post sigmoidectomy with end colostomy. 2. Ischemic colostomy. OPERATIONS PERFORMED: 1. Exploratory laparotomy. 2. Excision of ischemic necrotic colostomy. 3. Colostomy revision. SURGEON: Kirk Kimbrough D.O. ANESTHESIA: General endotracheal. ESTIMATED BLOOD LOSS: 50 mL FLUIDS GIVEN: 600 mL crystalloids. SPONGE AND INSTRUMENT COUNT: Certified as correct x2. COMPLICATIONS: None apparent at time of operation. INDICATIONS FOR PROCEDURE: A 37-year-old man with obstructive colon cancer, who is status post sigm oidectomy with end colostomy. Colostomies found overnight to be ischemic necrotic. Decision was made to bring the patient back to the operating room for exploration and revision. FINDINGS: Consistent with ischemic necrotic colostomy. No significant intraabdominal contamination. DESCRIPTION OF PROCEDURE: Informed consent obtained from the patient, who was brought to the operat ing room and placed in supine position. Following general anesthesia, previous Singletary catheter was p laced to bedside drain. Nasogastric tube was placed to wall suction. The ostomy appliance was anastacio rachel and the abdomen was sterilely prepped and draped in the usual fashion. The previous midline inc ision was reopened and fascial sutures were excised. The peritoneal cavity was entered. There was cloudy ascitic fluid in the peritoneal cavity, which were evacuated. Small bowel was run from the l igament of [place] down to terminal ileum. No pathology verified. The remainder of the colon was in spected down to the level of the descending colon at the exit site from the abdominal wall. We decided therefore to excise the necrotic colostomy. [place] stapler was brought into the operative f ield using this to divide the descending colon below the fascia. Stay sutures were then excised and the previous colostomy was delivered of the abdominal wall externally. We then changed gloves at t his time and proceeded to explore the remainder of the abdominal cavity. The previous rectal stump remains intact. Finding no other pathology. The abdominal cavity was copiously irrigated clear wit h saline solution. Good hemostasis noted in place. Fascia was approximated in midline using a runn ing stitch of #1 single stranded PDS. This was performed after the small bowel was returned to norm al anatomic location and omentum was drawn over the remainder of the viscera. Subcutaneous tissue was pulse lavaged with 2 liters of sterile saline. Skin incision was closed wit h inge. My attention was then turned over to the ostomy site. The staple line was excised for. A functional Mary Kay colostomy is perfected using interrupted sutur es of 2-0 chromic. Ostomy was quite viable albeit edematous. The patient tolerated the operation w ithout any apparent complication and was returned to recovery room in satisfactory condition.
[2017-03-25] MEDS: Ertapenem 1 GM in Sodium Chloride 0.9% 100 ML IVPB SCH (20:31)
[2017-03-26] MEDS: Piperacillin/Tazobactam 3.375 GM in Sodium Chloride 0.9% 100 ML IVPB SCH ×5 (00:10→23:57)
[2017-03-26] MEDS: D5 1/2 NS w/40 mEq KCL 1,000 ML IV SCH ×4 (00:11→17:38)
[2017-03-26] MEDS: Ketorolac Tromethamine 30 MG/ML VIAL IVP SCH ×5 (00:11→23:58)
[2017-03-26 04:54] LABS: #Eosinphils 0.1 thou/uL (0.0-0.7); #Lymphocytes 1.5 thou/uL (1.20-3.40); #Monocytes 1.6 thou/uL (0.11-0.59); %Eosinophils 0.5 % (0.0-10.0); %Lymphocytes 8.8 % (21.0-51.0); %Monocytes 9.3 % (0.0-10.0); Hematocrit 35.9 % (42.0-52.0); Mean Platelet Volume 7.7 fL (7.4-10.4); White Blood Cell (WBC) Count 17.2 thou/uL (4.8-10.8)
[2017-03-26 05:15] LABS: Anion Gap 10 mmol/L (10-20); BUN (Urea Nitrogen) 11 mg/dL (8.9-20.6); Calc. Creatinine Clearance 144 mL/min (70-130); Carbon Dioxide 23 mmol/L (22-29); Chloride 116 mmol/L (98-107); Estimated GFR-MDRD Greater than 90; Magnesium 2.2 mg/dL (1.6-2.6)
[2017-03-26 05:19] LABS: Phosphorus 1.6 mg/dL (2.3-4.7)
--- NOTE | 2017-03-26 07:16 | PDOC.FM ---
- Subjective Subjective: Patient states he had a good night. He does admit that he is still thirsty. He has been able to get up and walk around. The only pain he has right now is when he is walking and the pain is in his abdomen. He denies fevers, chills, n/v. He is having quite a bit of drainage out of his NG tube and out of his ostomy bag. He is wanting to have an ice cold sprite. He has no other complaints at this time. - Objective Vital Signs & Weight: Vital Signs (12 hours) Temp Pulse Resp BP Pulse Ox 03/26/17 04:00 99.2 F 68 16 118/69 91 L 03/26/17 00:00 99.2 F 83 16 148/89 H 91 L 03/25/17 20:25 98.9 F 70 17 151/90 H 96 Weight Admit Weight 83.9 kg Weight 83.901 kg I&O: 03/25/17 03/26/17 03/27/17 06:59 06:59 06:59 Intake Total 3750 4525 Output Total 7135 4480 Balance -3385 45 Result Diagrams: 03/26/17 03:58 03/26/17 03:58 <Cali Art - Last Filed: 03/26/17 07:14> - Objective Vital Signs & Weight: Vital Signs (12 hours) Temp Pulse Resp BP Pulse Ox 03/26/17 04:00 99.2 F 68 16 118/69 91 L 03/26/17 00:00 99.2 F 83 16 148/89 H 91 L Weight Admit Weight 83.9 kg Weight 83.901 kg I&O: 03/25/17 03/26/17 03/27/17 06:59 06:59 06:59 Intake Total 3750 4525 Output Total 7135 4480 Balance -3385 45 Result Diagrams: 03/26/17 03:58 03/26/17 03:58 <Yazmin Haney - Last Filed: 03/26/17 09:52> Phys Exam - Physical Examination HEENT: PERRLA Neck: no nodes, supple Respiratory: no wheezing, clear to auscultation bilateral Cardiovascular: RRR, no significant murmur Gastrointestinal: soft, positive bowel sounds Linear incision midline with ostomy in place. Musculoskeletal: no edema, pulses present Neurological: non-focal, normal sensation, moves all 4 limbs Psychiatric: normal affect, A&O x 3 Skin: no rash <Cali Art - Last Filed: 03/26/17 07:14> Dx/Plan (1) Mass of colon Code(s): K63.9 - DISEASE OF INTESTINE, UNSPECIFIED Status: Acute Plan: -Mass found on CT scan -GI found obstucting mass at 25cm from anorectal verge. -Biopsy shows invasive adenocarcinoma. -s/p sigmoidectomy and end colostomy -Oncology has been consulted. -AIR BREAKER OPERATOR pump -Await Gen surg recs for NG and NPO (2) Obstruction of colon Code(s): K56.60 - UNSPECIFIED INTESTINAL OBSTRUCTION Status: Acute Plan: -NG tube placed -NPO -Pending biopsies -s/p sigmoidectomy with end colostomy -Resolved with surgery. (3) Hypokalemia Code(s): E87.6 - HYPOKALEMIA Status: Acute Plan: -Potassium 3.6 today. -NPO -gave 40 mEq IVP -Continue to monitor -Manager Audio consultation and General Surgery Recommendations (4) Hypophosphatemia Code(s): E83.39 - OTHER DISORDERS OF PHOSPHORUS METABOLISM Status: Acute Plan: -Gave Sodium phosphate -Will monitor daily. - Plan Plan: Await gen surg recs <Cali Art - Last Filed: 03/26/17 07:14> Attending Addendum - Attending Addendum I personally evaluated the patient and discussed the management with Dr. Art. I agree with the History, Examination, Assessment and Plan documented above with any addition or exceptions noted below. The patient states pain is controlled. He has been given ice chips. Still has drainage from NGT. Replacing phosphorous. Hypokalemia improved. <Yazmin Haney - Last Filed: 03/26/17 09:52>
[2017-03-26] MEDS ORDERED: Potassium Phosphate 30 MMOL, Admixture Fee 1 EACH in Sodium Chloride 0.9% 500 ML IVPB SCH (08:30)
[2017-03-26] MEDS: Enoxaparin Sodium 40 MG/0.4 ML SYRINGE SC SCH (08:52)
[2017-03-26] MEDS: HYDROmorphone 10 mg/100 ml CADD IVPB PRN ×2 (12:48→17:37)
--- NOTE | 2017-03-26 15:10 | PRG ---
DATE OF SERVICE: 03/26/2017 SUBJECTIVE: Mr. Chemo Reyes is a 37-year-old male that we are following in consultation for colonic m ass and obstruction. He is postop day #3, status post exploratory laparotomy, sigmoidectomy and end colostomy. Yesterday, he was found to have necrosed appearing ostomy. He was taken to the OR for ostomy revision with Dr. Kimbrough. He is now postop day #1 status post ostomy revision. Overnight, th ere were no acute events. T-max was 99.2. Today, the patient localizes minimal abdominal pain, but states he feels better than yesterday. OBJECTIVE: VITAL SIGNS: Temperature 98.0, pulse 73, respirations 18, O2 sat 94% on room air, blood pressure 12 5/77. GENERAL: Well-developed male in no acute distress, resting in bed. NG tube is in place. PULMONARY: Normal work of breathing. Symmetric rise. CARDIOVASCULAR: Regular rate and rhythm. GASTROINTESTINAL: Abdomen is soft. Surgical dressing is clean, dry, and intact with minimal serosa nguineous drainage. Ostomy is edematous, but pink with some serosanguineous drainage. No stool or gas output. MUSCULOSKELETAL: Moves all extremities x4. NEUROLOGIC: No focal deficit noted. LABORATORY DATA: WBC 17.2, hemoglobin 10.9, hematocrit 35.9, platelet count 238. Sodium 145, potas sium 3.6, chloride 116, carbon dioxide 23, BUN 11, creatinine 0.84, glucose 126, phosphorus 1.6, mag nesium 2.2. Urinary output 480 mL overnight. NG tube output 1.4 liters overnight. ASSESSMENT: Postoperative day #3, status post exploratory laparotomy, sigmoidectomy and end colosto my. Postop day #1, status post ostomy revision. PLAN: Continue pain management via WAREHOUSE PACKAGING SUPERVISOR, encourage mobility. Await ostomy function. Follow NG tube output. Follow urinary output. Continue broad spectrum antibiotics. Follow a.m. CBC. Electrolyt e replacement. Patient has been discussed with trauma attending.
[2017-03-27] MEDS: D5 1/2 NS w/40 mEq KCL 1,000 ML IV SCH ×3 (03:16→23:33)
[2017-03-27] MEDS: Piperacillin/Tazobactam 3.375 GM in Sodium Chloride 0.9% 100 ML IVPB SCH ×4 (06:01→23:32)
[2017-03-27] MEDS: Ketorolac Tromethamine 30 MG/ML VIAL IVP SCH ×2 (06:01→11:25)
[2017-03-27 07:05] LABS: #Eosinphils 0.6 thou/uL (0.0-0.7); #Lymphocytes 1.3 thou/uL (1.20-3.40); #Monocytes 1.1 thou/uL (0.11-0.59); %Basophils 0.2 % (0.0-1.0); %Eosinophils 4.5 % (0.0-10.0); %Monocytes 8.3 % (0.0-10.0); Mean Platelet Volume 7.5 fL (7.4-10.4); Red Blood Cell (RBC) Count 3.95 mill/uL (4.70-6.10)
--- NOTE | 2017-03-27 07:26 | PDOC.FM ---
- Subjective Subjective: Patient states he had a good night. He was able to get up and sit in the chair for a few hours yesterday. He plans to do the same today to watch the [employer] play. He does note that he feels like he got hot last night, but seemed to improve with a cool wet cloth. He denies chest pain, sob, n/v. He denies cough, or chills. He is still awaiting to have the NG tube taken out by Gen surg. - Objective Vital Signs & Weight: Vital Signs (12 hours) Temp Pulse Resp BP Pulse Ox 03/27/17 04:00 99.3 F 64 16 159/94 H 91 L 03/27/17 00:00 98.9 F 93 16 128/80 94 L 03/26/17 20:25 97.6 F 69 16 97 03/26/17 20:00 97.6 F 69 16 152/89 H 97 Weight Admit Weight 83.9 kg Weight 83.901 kg I&O: 03/26/17 03/27/17 03/28/17 06:59 06:59 06:59 Intake Total 4525 2380 Output Total 4480 4100 Balance 45 -1720 Result Diagrams: 03/27/17 06:56 03/27/17 06:56 <Cali Art - Last Filed: 03/27/17 07:38> - Objective Vital Signs & Weight: Vital Signs (12 hours) Temp Pulse Resp BP Pulse Ox 03/27/17 08:14 98.5 F 92 14 97 03/27/17 08:00 98.5 F 92 14 102/68 97 03/27/17 04:00 99.3 F 64 16 159/94 H 91 L Weight Admit Weight 83.9 kg Weight 83.901 kg I&O: 03/26/17 03/27/17 03/28/17 06:59 06:59 06:59 Intake Total 4525 2380 Output Total 4480 4100 Balance 45 -1720 Result Diagrams: 03/27/17 06:56 03/27/17 06:56 <Yazmin Haney - Last Filed: 03/27/17 14:34> Phys Exam - Physical Examination HEENT: PERRLA, moist MMs Neck: no nodes, no JVD Respiratory: no wheezing, clear to auscultation bilateral Cardiovascular: RRR, no significant murmur Gastrointestinal: soft, no distention, positive bowel sounds incision site and ostomy present. Musculoskeletal: no edema, pulses present Neurological: non-focal, normal sensation, moves all 4 limbs Lymphatic: no nodes Psychiatric: normal affect, A&O x 3 Skin: no rash <Cali Art - Last Filed: 03/27/17 07:38> Dx/Plan (1) Mass of colon Code(s): K63.9 - DISEASE OF INTESTINE, UNSPECIFIED Status: Acute Plan: -Mass found on CT scan -GI found obstucting mass at 25cm from anorectal verge. -Biopsy shows invasive adenocarcinoma. -s/p sigmoidectomy and end colostomy -Oncology has been consulted. -INSIDE SALES ADVERTISING EXECUTIVE pump -Await Gen surg recs for NG and NPO (2) Obstruction of colon Code(s): K56.60 - UNSPECIFIED INTESTINAL OBSTRUCTION Status: Acute Plan: -NG tube placed -NPO -Pending biopsies -s/p sigmoidectomy with end colostomy -Resolved with surgery. (3) Hypokalemia Code(s): E87.6 - HYPOKALEMIA Status: Acute Plan: -Potassium 3.3 today. -NPO -gave 40 mEq IVP -Continue to monitor -Glaze Wiper consultation and General Surgery Recommendations (4) Hypophosphatemia Code(s): E83.39 - OTHER DISORDERS OF PHOSPHORUS METABOLISM Status: Acute Plan: -Gave Sodium phosphate -Will monitor daily. - Plan Plan: Will continue current therapy. <Cali Art - Last Filed: 03/27/17 07:38> Attending Addendum - Attending Addendum I personally evaluated the patient and discussed the management with Dr. Art. I agree with the History, Examination, Assessment and Plan documented above with any addition or exceptions noted below. The patient still has significant output from NG tube. His pain is controlled. He had nausea yesterday. Pt has not been fed since admission. We will look into starting tpn for nutrition. <Yazmin Haney - Last Filed: 03/27/17 14:34>
[2017-03-27 07:29] LABS: ALT (SGPT) Less than 7 U/L (8-55); AST (SGOT) 21 U/L (5-34); Alkaline Phosphatase 44 U/L (40-150); Anion Gap 10 mmol/L (10-20); BUN (Urea Nitrogen) 7 mg/dL (8.9-20.6); Bilirubin, Total 0.5 mg/dL (0.2-1.2); Calc. Creatinine Clearance 151 mL/min (70-130); Calcium 8.6 mg/dL (7.8-10.44); Carbon Dioxide 28 mmol/L (22-29); Chloride 110 mmol/L (98-107); Estimated GFR-MDRD Greater than 90; Globulin 2.8 g/dL (2.4-3.5); Protein, Total 5.7 g/dL (6.0-8.3)
[2017-03-27] MEDS ORDERED: Potassium Chloride 40 MEQ in Sodium Chloride 0.9% 250 ML 250 ML IVPB SCH (08:00)
[2017-03-27] MEDS: Enoxaparin Sodium 40 MG/0.4 ML SYRINGE SC SCH (09:10)
--- NOTE | 2017-03-27 14:36 | PRG ---
DATE OF SERVICE: 03/27/2017 SUBJECTIVE: Mr. Chemo Reyes is a 37-year-old male who we have been following in consultation for colo aurelia mass and obstruction. He is postop day #4 status post exploratory laparotomy, sigmoidectomy and colostomy. He is postop day #2 status post ostomy revision. There were no acute overnight events. The patient reports that he is nauseated and recently vomited. NG tube with thick bilious output. OBJECTIVE: VITAL SIGNS: Temperature 98.5, pulse 92, respirations 14, O2 sat 97% on room air and blood pressure 102/68. GENERAL: A well-developed, well-nourished male in no acute distress, sitting in a chair, out of bed . NG tube in place with green bilious appearing output. PULMONARY: Normal work of breathing. Symmetric rise. CARDIOVASCULAR: Regular rate and rhythm. GASTROINTESTINAL: Abdomen is soft with generalized and appropriate tenderness. Surgical dressing i s intact. Ostomy appears edematous, but pink with serosanguineous drainage. No stool or gas output visible. MUSCULOSKELETAL: Moves all extremities x4. NEUROLOGIC: No focal deficit noted. LABORATORY FINDINGS: WBC 13.0, hemoglobin 10.9, hematocrit 36.0 and platelet count 315. Sodium 145 , potassium 3.3, chloride 110, carbon dioxide 28, BUN 7, creatinine 0.80, glucose 116 and phosphorus 1.5. Urinary output 825 mL x24 hours, gastric drainage 3.2 liters x24 hours. ASSESSMENT: Postoperative day #4 status post exploratory laparotomy, sigmoidectomy and end colostom y. Postoperative day #2 status post ostomy revision. PLAN: Continue pain management via [employer]HE[employer]ENT MAKEUP ARTIST, encourage mobility. Continue pulmonary toilet. NG tube oscar s been flushed and is now functioning appropriately. Follow NG tube output. Await ostomy function. Continue antibiotics. Electrolyte replacement. A.m. labs. Assessment and plan been discussed wi th attending.
[2017-03-27] MEDS: Metoclopramide HCl 10 MG/2 ML VIAL IVP SCH ×2 (14:46→20:30)
[2017-03-27] MEDS: Pantoprazole 40 MG VIAL IVP SCH (20:30)
[2017-03-27] MEDS ORDERED: FLU VACC QS2017-18 36 mo. & older 0.5 ML SYRINGE IM ONE (21:00)
[2017-03-28] MEDS ORDERED: Acetaminophen 1,000 MG in Premix Bag 1 BAG IVPB PRN (01:43)
[2017-03-28] MEDS: Enalaprilat Dihydrate 1.25 MG/ML VIAL SLOW IVP PRN ×2 (01:59→12:19)
[2017-03-28 05:15] LABS: #Eosinphils 0.6 thou/uL (0.0-0.7); #Lymphocytes 2.3 thou/uL (1.20-3.40); #Monocytes 1.4 thou/uL (0.11-0.59); #Neutrophils 8.3 thou/uL (1.40-6.50); %Basophils 0.4 % (0.0-1.0); %Eosinophils 4.9 % (0.0-10.0); %Lymphocytes 18.3 % (21.0-51.0); %Monocytes 10.8 % (0.0-10.0); Hematocrit 33.5 % (42.0-52.0); Mean Platelet Volume 7.9 fL (7.4-10.4); Red Blood Cell (RBC) Count 3.75 mill/uL (4.70-6.10); White Blood Cell (WBC) Count 12.6 thou/uL (4.8-10.8)
[2017-03-28] MEDS: HYDROmorphone 10 mg/100 ml CADD IVPB PRN (05:35)
[2017-03-28] MEDS: Metoclopramide HCl 10 MG/2 ML VIAL IVP SCH ×3 (05:37→21:09)
[2017-03-28] MEDS: Piperacillin/Tazobactam 3.375 GM in Sodium Chloride 0.9% 100 ML IVPB SCH ×4 (05:37→23:41)
[2017-03-28 05:39] LABS: Anion Gap 9 mmol/L (10-20); BUN (Urea Nitrogen) 6 mg/dL (8.9-20.6); Calc. Creatinine Clearance 157 mL/min (70-130); Calcium 8.6 mg/dL (7.8-10.44); Carbon Dioxide 27 mmol/L (22-29); Chloride 107 mmol/L (98-107); Estimated GFR-MDRD Greater than 90; Magnesium 1.6 mg/dL (1.6-2.6); Phosphorus 2.8 mg/dL (2.3-4.7)
[2017-03-28] MEDS ORDERED: Potassium Chloride 40 MEQ in Sodium Chloride 0.9% 500 ML IVPB SCH (06:45)
--- NOTE | 2017-03-28 06:48 | PDOC.FM ---
- Subjective Subjective: Patients states he had a good night. He states he is getting gas in his ostomy, but no fecal matter. He does note a lot of drainage out of his NG tube yet and it got full yesterday and refluxed back into his mouth and made him vomit. He is still using the incentive spirometer and getting up and walking around. He had the epidural removed yesterday so he has a little more pain than before, but it is well controlled with the IV meds. - Objective Vital Signs & Weight: Vital Signs (12 hours) Temp Pulse Resp BP BP Pulse Ox 03/28/17 04:00 99.4 F 61 16 155/99 H 93 L 03/28/17 01:59 168/103 H 03/28/17 00:00 99.7 F H 70 14 90 L 03/27/17 20:30 100 F H 69 20 03/27/17 20:00 99.3 F 69 20 156/93 H 91 L Weight Admit Weight 83.9 kg Weight 83.901 kg I&O: 03/26/17 03/27/17 03/28/17 06:59 06:59 06:59 Intake Total 4525 2380 6120 Output Total 4480 4100 5575 Balance 45 -1720 545 Result Diagrams: 03/28/17 04:20 03/28/17 04:20 <Cali Art - Last Filed: 03/28/17 09:43> - Objective Vital Signs & Weight: Vital Signs (12 hours) Temp Pulse Resp BP BP Pulse Ox 03/28/17 09:33 99.6 F 64 20 95 03/28/17 08:44 144/94 H 03/28/17 08:00 99.6 F 64 20 158/104 H 95 03/28/17 04:00 99.4 F 61 16 155/99 H 93 L 03/28/17 01:59 168/103 H Weight Admit Weight 83.9 kg Weight 83.901 kg I&O: 03/27/17 03/28/17 03/29/17 06:59 06:59 06:59 Intake Total 2380 6120 Output Total 4100 5575 Balance -1720 545 Result Diagrams: 03/28/17 04:20 03/28/17 04:20 <Aries Jamison - Last Filed: 03/28/17 12:20> Phys Exam - Physical Examination HEENT: PERRLA, moist MMs Respiratory: no wheezing, clear to auscultation bilateral Cardiovascular: RRR, no significant murmur Gastrointestinal: soft, no distention, positive bowel sounds midline incision and ostomy present Musculoskeletal: no edema, pulses present Neurological: non-focal, moves all 4 limbs Psychiatric: normal affect, A&O x 3 Skin: no rash <Cali Art - Last Filed: 03/28/17 09:43> Dx/Plan (1) Mass of colon Code(s): K63.9 - DISEASE OF INTESTINE, UNSPECIFIED Status: Acute Plan: -Mass found on CT scan -GI found obstucting mass at 25cm from anorectal verge. -Biopsy shows invasive adenocarcinoma. -s/p sigmoidectomy and end colostomy -Oncology has been consulted. -Pain control -Await Gen surg recs for NG and NPO (2) Obstruction of colon Code(s): K56.60 - UNSPECIFIED INTESTINAL OBSTRUCTION * DO NOT USE * Status: Acute Plan: -NG tube placed -NPO -Pending biopsies -s/p sigmoidectomy with end colostomy -Resolved with surgery. (3) Hypokalemia Code(s): E87.6 - HYPOKALEMIA Status: Acute Plan: -Potassium 3.3 today. -NPO -gave 40 mEq IVP -Continue to monitor -Material Checker consultation and General Surgery Recommendations (4) Hypophosphatemia Code(s): E83.39 - OTHER DISORDERS OF PHOSPHORUS METABOLISM Status: Acute Plan: -Gave Sodium phosphate -Phosphate today 2.8 -Will monitor daily. - Plan Plan: Await General surgery recs. <Cali Art - Last Filed: 03/28/17 09:43> Attending Addendum - Attending Addendum I personally evaluated the patient and discussed the management with Dr. Art. I agree with the History, Examination, Assessment and Plan documented above with any addition or exceptions noted below. V/S stable, mildly hypertensive. Lungs: CTA. Abd: mildly distended, soft, non- tender. Ostomy looks ok, No bowel sounds. Ileus. May need TPN. Continue NG suction. Will follow with Gen. Surgery. [facility] <Aries Jamison - Last Filed: 03/28/17 12:20>
[2017-03-28] MEDS ORDERED: Magnesium Sulfate 3 GM, Admixture Fee 1 EACH in Sodium Chloride 0.9% 100 ML IVPB SCH (07:30)
[2017-03-28] MEDS: Enoxaparin Sodium 40 MG/0.4 ML SYRINGE SC SCH (07:37)
[2017-03-28] MEDS: Pantoprazole 40 MG VIAL IVP SCH ×2 (07:38→21:10)
[2017-03-28] MEDS ORDERED: D5 1/2 NS w/40 mEq KCL 1,000 ML IV SCH (08:18)
[2017-03-28] MEDS ORDERED: Furosemide 20 MG/2 ML VIAL SLOW IVP SCH ×2 (08:30→18:00)
[2017-03-28] MEDS: D5 1/2 NS w/40 mEq KCL 1,000 ML IV SCH (08:38)
[2017-03-28] MEDS ORDERED: traMADol HCl 50 MG TAB PO PRN ×2 (10:03)
[2017-03-28] MEDS: Acetaminophen 500 MG TAB PO SCH ×3 (11:00→21:09)
--- NOTE | 2017-03-28 12:31 | PRG-2 ---
DATE OF SERVICE: 03/28/2017 SUBJECTIVE: Mr. Chemo Reyes is a 37-year-old male who we have been following in consultation for colonic mass and obstruction. He is postop day #5 status post exploratory laparotomy, sigmoidectomy and colostomy. He is postop day 3 status post ostomy revision. There were no acute events overnight. The patient reports that he has been up and walking around, getting up and walking around the halls. Reports adequate pain control. NG tube had light gastric output this morning. OBJECTIVE: VITAL SIGNS: Temperature was 99.6, pulse of 64, respirations 20. Oxygen flow 95% on room air, blood pressure is 144/94. GENERAL: He is sitting up in a chair. Well-developed, well-nourished male. HEENT: Atraumatic, normocephalic. NG tube was in place again with light gastric appearing fluid. PULMONARY: Normal work of breathing. Symmetric rise. CARDIOVASCULAR: Regular rate and rhythm. No murmurs or gallops heard. GASTROINTESTINAL: Abdomen is soft with generalized and appropriate tenderness. A surgical dressing was removed. Incision site was examined. There was no excessive redness or swelling. No excessive drainage noted. Ostomy was pink. He did have stool drainage. There was gas when changing out the ostomy with wound care. MUSCULOSKELETAL: Moves all extremities x4. NEUROLOGIC: No focal deficit noted. LABORATORY DATA: White blood cell count of 12.6, hemoglobin 10.5, hematocrit of 33.5, platelet count of 312. Sodium was 140, potassium 3.3, chloride was 107 , CO2 of 27, BUN of 6, creatinine of 0.77, glucose is 108, calcium is 8.6, phosphorus is 2.8 and magnesium was 1.6. There was no new images to be examined at this time. ASSESSMENT: 1. He is postop day #5 status post exploratory laparotomy, sigmoidectomy and end colostomy. 2. Postoperative day #2, status post ostomy revision. 3. Invasive adenocarcinoma from a colon biopsy. PLAN: We will discontinue his ABLE BODIED SEAMAN pump. We will put him on oral pain medications. We have removed the NG tube. We will start him on a clear liquid diet. Continue the pulmonary toilet. We will continue with the antibiotics and will continue with electrolyte replacements. We will give him a dose of Lasix today. We will recheck his labs tomorrow morning and continue to monitor and reassess. The patient was seen and assessed and plan was discussed with Dr. Kimbrough. Attending: Dr. Kirk Kimbrough to co-sign this note. [place]
[2017-03-29 05:36] LABS: #Basophils 0.1 thou/uL (0.0-0.2); #Eosinphils 0.5 thou/uL (0.0-0.7); #Monocytes 1.1 thou/uL (0.11-0.59); #Neutrophils 7.4 thou/uL (1.40-6.50); %Basophils 0.7 % (0.0-1.0); %Eosinophils 4.9 % (0.0-10.0); %Lymphocytes 17.8 % (21.0-51.0); Hematocrit 38.5 % (42.0-52.0); Red Blood Cell (RBC) Count 4.38 mill/uL (4.70-6.10); White Blood Cell (WBC) Count 11.1 thou/uL (4.8-10.8)
[2017-03-29] MEDS: Acetaminophen 500 MG TAB PO SCH ×4 (05:39→21:09)
[2017-03-29] MEDS: Piperacillin/Tazobactam 3.375 GM in Sodium Chloride 0.9% 100 ML IVPB SCH ×3 (05:39→18:00)
[2017-03-29] MEDS: Metoclopramide HCl 10 MG/2 ML VIAL IVP SCH ×2 (05:39→14:54)
[2017-03-29 06:23] LABS: Anion Gap 13 mmol/L (10-20); BUN (Urea Nitrogen) 7 mg/dL (8.9-20.6); Calc. Creatinine Clearance 151 mL/min (70-130); Calcium 8.8 mg/dL (7.8-10.44); Carbon Dioxide 25 mmol/L (22-29); Chloride 101 mmol/L (98-107); Estimated GFR-MDRD Greater than 90; Magnesium 1.8 mg/dL (1.6-2.6); Phosphorus 3.9 mg/dL (2.3-4.7)
[2017-03-29] MEDS: Lactated Ringer's 1,000 ML IV SCH ×2 (06:35→06:36)
--- NOTE | 2017-03-29 06:40 | PDOC.FM ---
- Subjective Subjective: Patient had a good night. He tolerated the clear liquid diet well. He says he has been getting up and walking around the halls multiple times per day. He denies any new symptom over night. He does state that his mother told him that he had HTN, but has never been treated for it. - Objective Vital Signs & Weight: Vital Signs (12 hours) Temp Pulse Resp BP BP Pulse Ox 03/29/17 05:39 65 163/97 H 03/29/17 03:56 98.9 F 65 20 163/79 H 97 03/29/17 00:29 99.0 F 61 18 147/87 H 97 03/28/17 20:50 98.7 F 74 18 97 03/28/17 20:00 98.7 F 74 18 147/96 H 97 Weight Admit Weight 83.9 kg Weight 83.901 kg I&O: 03/27/17 03/28/17 03/29/17 06:59 06:59 06:59 Intake Total 2380 6120 2280 Output Total 4100 5575 4645 Balance -8359 243 -0963 Result Diagrams: 03/29/17 04:35 03/29/17 04:35 <Cali Art - Last Filed: 03/29/17 11:38> - Objective Vital Signs & Weight: Vital Signs (12 hours) Temp Pulse Resp BP BP Pulse Ox 03/30/17 08:00 98.9 F 68 16 150/92 H 95 03/30/17 07:50 67 150/92 H 03/30/17 04:00 99.3 F 67 20 162/96 H 96 03/30/17 00:00 99.6 F 80 16 158/91 H 97 Weight Admit Weight 83.9 kg Weight 83.901 kg I&O: 03/29/17 03/30/17 03/31/17 06:59 06:59 06:59 Intake Total 2280 1050 Output Total 4645 1180 Balance -4208 -0632 Result Diagrams: 03/30/17 04:35 03/30/17 04:35 <Aries Jamison - Last Filed: 03/30/17 08:49> Phys Exam - Physical Examination HEENT: PERRLA, moist MMs Neck: no nodes Respiratory: no wheezing, clear to auscultation bilateral Cardiovascular: RRR, no significant murmur Gastrointestinal: soft, no distention, positive bowel sounds Midline incision with inge and ostomy in place. Musculoskeletal: no edema, pulses present Neurological: non-focal, normal sensation, moves all 4 limbs Psychiatric: normal affect, A&O x 3 <Cali Art - Last Filed: 03/29/17 11:38> Dx/Plan (1) Mass of colon Code(s): K63.9 - DISEASE OF INTESTINE, UNSPECIFIED Status: Acute Plan: -Mass found on CT scan -GI found obstucting mass at 25cm from anorectal verge. -Biopsy shows invasive adenocarcinoma. -s/p sigmoidectomy and end colostomy -Oncology has been consulted. -Pain control -Clear liquid diet and will advance as tolerated (2) Obstruction of colon Code(s): K56.60 - UNSPECIFIED INTESTINAL OBSTRUCTION * DO NOT USE * Status: Acute Plan: -NG tube placed -NPO -Pending biopsies -s/p sigmoidectomy with end colostomy -Resolved with surgery. (3) Hypokalemia Code(s): E87.6 - HYPOKALEMIA Status: Acute Plan: -Potassium 3.0 today. -NPO -gave 40 mEq IVP -Continue to monitor -Habilitative Interventionist consultation and General Surgery Recommendations (4) Hypophosphatemia Code(s): E83.39 - OTHER DISORDERS OF PHOSPHORUS METABOLISM Status: Acute Plan: -Phosphate today 3.9 -Will monitor daily. - Plan Plan: Advance diet as tolerated, pain control, gen surg recs. <Cali Art - Last Filed: 03/29/17 11:38> Attending Addendum - Attending Addendum I personally evaluated the patient and discussed the management on DOS 03/[address] Art. I agree with the History, Examination, Assessment and Plan documented above with any addition or exceptions noted below. At time of my exam he is alert, smiling, sitting up in chair. Has eaten regular diet for breakfast. Abd: soft Non-tender. Incision and ostomy look fine. Continue post op care. Monitor BP elevations. [facility] <Aries Jamison - Last Filed: 03/30/17 08:49>
[2017-03-29] MEDS ORDERED: Potassium Chloride 40 MEQ in Premix Bag 1 BAG IVPB SCH (06:45)
[2017-03-29] MEDS ORDERED: Potassium Chloride 40 MEQ, Admixture Fee 1 EACH in Sodium Chloride 0.9% 250 ML 250 ML IVPB SCH (06:45)
[2017-03-29] MEDS ORDERED: Potassium Phosphate 30 MMOL, Admixture Fee 1 EACH in Sodium Chloride 0.9% 250 ML 250 ML IVPB SCH (08:00)
[2017-03-29] MEDS: Enoxaparin Sodium 40 MG/0.4 ML SYRINGE SC SCH (08:15)
[2017-03-29] MEDS: Pantoprazole 40 MG VIAL IVP SCH (08:16)
--- NOTE | 2017-03-29 10:57 | PRG-2 ---
DATE OF SERVICE: 03/29/2017 SUBJECTIVE: Mr. Chemo Reyes is a 37-year-old male, who we have been following in consultation for col onic mass and obstruction. He is postop day #6 status post exploratory laparotomy, sigmoidectomy an d colostomy. He is postop day #4 status post ostomy revision. There were no acute events overnight . The patient reports having stool in his ostomy overnight. The patient reports he has been up and walking around. Reports adequate pain control. He tolerated clear liquid diet as well. No other concerns or complaints at this time. OBJECTIVE: VITAL SIGNS: Temperature is 98.9, pulse 78, respirations 18, O2 sats are 93% on room air, blood pre ssure is 145/84. GENERAL: He is lying in bed resting. Well-developed, well-nourished male. HEENT: Atraumatic, normocephalic. PULMONARY: Normal work of breathing. Symmetric rise. CARDIOVASCULAR: Regular rate and rhythm. No murmurs or gallops. GASTROINTESTINAL: Abdomen is soft with generalized appropriate tenderness. No surgical dressing is in place. Incision site is examined, there is no redness or swelling. [place] in place. Ostomy w as pink. Wound care had just changed it, reported having stool drainage and having gas as well. MUSCULOSKELETAL: Moves all extremities x4. NEUROLOGIC: No focal deficit noted. LABORATORY DATA: White blood cell count 11.1, hemoglobin of 11.8, hematocrit of 38.5 and platelet c ount of 389. Chemistry; sodium was 136, potassium was 3.0. His chloride was 101, his CO2 was 25, B UN was 7. His creatinine was 0.80. His glucose was 96. His calcium was 8.8. His phosphorus 2.9 a nd his magnesium was 1.8. ASSESSMENT: 1. He is postop day #6 status post exploratory laparotomy, sigmoidectomy and end colostomy. 2. Postoperative day #4, status post ostomy revision. 3. Invasive adenocarcinoma from the colon biopsy. PLAN: We will continue his current pain regimen. We will start him on a regular diet. Continue pu lmonary toilet. We will continue with antibiotics and continue with electrolyte replacements. We w ill recheck his labs tomorrow and plan is to put a port in place tomorrow as long as potassium is ok ay. The patient was seen and assessed and plan was discussed with Dr. Kimbrough.
[2017-03-30] MEDS: Piperacillin/Tazobactam 3.375 GM in Sodium Chloride 0.9% 100 ML IVPB SCH ×2 (00:47→05:38)
[2017-03-30] MEDS: Acetaminophen 500 MG TAB PO SCH ×3 (05:38→16:18)
[2017-03-30 05:44] LABS: #Basophils 0.1 thou/uL (0.0-0.2); #Eosinphils 0.5 thou/uL (0.0-0.7); #Lymphocytes 2.1 thou/uL (1.20-3.40); #Monocytes 1.1 thou/uL (0.11-0.59); #Neutrophils 7.2 thou/uL (1.40-6.50); %Basophils 0.6 % (0.0-1.0); %Eosinophils 4.6 % (0.0-10.0); %Lymphocytes 18.9 % (21.0-51.0); %Monocytes 10.2 % (0.0-10.0); Hematocrit 36.3 % (42.0-52.0); Mean Platelet Volume 8.1 fL (7.4-10.4); Red Blood Cell (RBC) Count 4.13 mill/uL (4.70-6.10); White Blood Cell (WBC) Count 10.9 thou/uL (4.8-10.8)
[2017-03-30 06:00] LABS: Anion Gap 11 mmol/L (10-20); BUN (Urea Nitrogen) 7 mg/dL (8.9-20.6); Calc. Creatinine Clearance 148 mL/min (70-130); Calcium 8.6 mg/dL (7.8-10.44); Carbon Dioxide 25 mmol/L (22-29); Chloride 104 mmol/L (98-107); Estimated GFR-MDRD Greater than 90; Magnesium 2.1 mg/dL (1.6-2.6); Phosphorus 3.2 mg/dL (2.3-4.7)
[2017-03-30] MEDS ORDERED: Potassium Chloride 40 MEQ in Sodium Chloride 0.9% 500 ML IVPB SCH (06:30)
--- NOTE | 2017-03-30 06:41 | PDOC.FM ---
- Subjective Subjective: Patient states he had a good night with no problems. He is tolerating all of the food he can have. He denies chest pain, sob, n/v. He has had good output from his ostomy bag. He is going for a port placement today. - Objective Vital Signs & Weight: Vital Signs (12 hours) Temp Pulse Resp BP Pulse Ox 03/30/17 04:00 99.3 F 67 20 162/96 H 96 03/30/17 00:00 99.6 F 80 16 158/91 H 97 03/29/17 20:00 99.6 F 80 16 157/95 H 97 Weight Admit Weight 83.9 kg Weight 83.901 kg I&O: 03/28/17 03/29/17 03/30/17 06:59 06:59 06:59 Intake Total 6120 2280 1050 Output Total 5575 4645 2450 Balance 495 -7443 -1127 Result Diagrams: 03/30/17 04:35 03/30/17 04:35 <Cali Art - Last Filed: 03/30/17 06:39> - Objective Vital Signs & Weight: Vital Signs (12 hours) Temp Pulse Resp BP BP Pulse Ox 03/30/17 08:55 98.9 F 68 16 95 03/30/17 08:00 98.9 F 68 16 150/92 H 95 03/30/17 07:50 67 150/92 H 03/30/17 04:00 99.3 F 67 20 162/96 H 96 03/30/17 00:00 99.6 F 80 16 158/91 H 97 Weight Admit Weight 83.9 kg Weight 83.901 kg I&O: 03/29/17 03/30/17 03/31/17 06:59 06:59 06:59 Intake Total 2280 1050 Output Total 4645 2450 Balance -8544 -1400 Result Diagrams: 03/30/17 04:35 03/30/17 04:35 <Aries Jamison - Last Filed: 03/30/17 11:39> Phys Exam - Physical Examination HEENT: moist MMs Neck: no nodes, supple Respiratory: no wheezing, clear to auscultation bilateral Cardiovascular: RRR, no significant murmur Gastrointestinal: soft, positive bowel sounds midline incision and ostomy in place. Musculoskeletal: no edema, pulses present Neurological: non-focal, normal sensation, moves all 4 limbs Psychiatric: normal affect, A&O x 3 <Cali Art - Last Filed: 03/30/17 06:39> Dx/Plan (1) Mass of colon Code(s): K63.9 - DISEASE OF INTESTINE, UNSPECIFIED Status: Acute Plan: -Mass found on CT scan -GI found obstucting mass at 25cm from anorectal verge. -Biopsy shows invasive adenocarcinoma. -s/p sigmoidectomy and end colostomy -Oncology has been consulted. -Pain control -Full regular diet -Going for port placement for Chemo today. (2) Obstruction of colon Code(s): K56.60 - UNSPECIFIED INTESTINAL OBSTRUCTION * DO NOT USE * Status: Acute Plan: -NG tube placed -NPO -Pending biopsies -s/p sigmoidectomy with end colostomy -Resolved with surgery. (3) Hypokalemia Code(s): E87.6 - HYPOKALEMIA Status: Acute Plan: -Potassium 3.1 today. -NPO -gave 40 mEq IVP -Continue to monitor -[employer] Police Officer consultation and General Surgery Recommendations -Will likely need outpatient supplementation (4) Hypophosphatemia Code(s): E83.39 - OTHER DISORDERS OF PHOSPHORUS METABOLISM Status: Acute Plan: -likely resolved with restarting diet. -Phosphate today 3.2 -Will monitor daily. - Plan Plan: Await port placement, oncology and gen surg recs. <Cali Art - Last Filed: 03/30/17 06:39> Attending Addendum - Attending Addendum I personally evaluated the patient and discussed the management with Dr. Art. I agree with the History, Examination, Assessment and Plan documented above with any addition or exceptions noted below. [facility] <Aries Jamison - Last Filed: 03/30/17 11:39>
[2017-03-30] MEDS: Enoxaparin Sodium 40 MG/0.4 ML SYRINGE SC SCH (07:51)
[2017-03-30] MEDS ORDERED: Bupivacaine HCl 0.5%/Epinephrine 1:200,000/PF 30 ml Vial ONE (10:14)
[2017-03-30] MEDS ORDERED: Sodium Chloride 0.9% 10 ML ONE (10:14)
[2017-03-30] MEDS ORDERED: Midazolam HCl 2 mg/2 ml Vial ONE (10:23)
[2017-03-30] MEDS ORDERED: Fentanyl 100 MCG/2 ML VIAL ONE (10:23)
[2017-03-30] MEDS ORDERED: Dexamethasone 20 MG/5 ML VIAL ONE (10:45)
[2017-03-30] MEDS ORDERED: PHENYLEPHRINE-NS 100 MCG/ML 10 ML SYRINGE ONE (10:45)
[2017-03-30] MEDS ORDERED: Ondansetron HCl/PF 4 MG/2 ML Vial ONE (10:45)
[2017-03-30] MEDS ORDERED: Lidocaine 1% PF 5 ML VIAL ONE (10:45)
[2017-03-30] MEDS ORDERED: Propofol 200 MG/20 ML VIAL ONE (10:45)
[2017-03-30] MEDS ORDERED: Ondansetron HCl/PF 4 MG/2 ML Vial IVP PRN (11:14)
[2017-03-30] MEDS ORDERED: Promethazine HCl 25 MG/ML VIAL IM PRN (11:14)
[2017-03-30] MEDS ORDERED: Promethazine HCl 25 MG/ML VIAL SLOW IVP PRN (11:14)
--- NOTE | 2017-03-30 12:52 | RAD ---
CHEST ONE VIEW: History: Mediport placement. FINDINGS: Cardiac silhouette is magnified by projection. Pulmonary vasculature is upper limits of normal. Medi astinum is midline. Tip of a left subclavian port-a-cath projects over the cavoatrial junction. Ther e is no evidence of pneumothorax. Linear atelectasis projects over each lung base. IMPRESSION: 1. Left subclavian Mediport is in good radiographic position. 2. Mild bibasilar atelectasis. POS: [facility]
--- NOTE | 2017-03-30 12:54 | OP ---
DATE OF OPERATION: 03/30/2017 PREOPERATIVE DIAGNOSIS: Colon cancer. POSTOPERATIVE DIAGNOSIS: Colon cancer. PROCEDURES PERFORMED: Placement of left subclavian Port-A-Cath under fluoroscopy. SURGEON: Kirk Kimbrough D.O. ANESTHESIA: General endotracheal. ESTIMATED BLOOD LOSS: Less than 5 mL. COUNTS: Sponge and instrument counts are certified as correct x2. COMPLICATIONS: None apparent at time of operation. INDICATIONS FOR PROCEDURE: A 37-year-old man recently diagnosed with colon cancer. The patient is status post sigmoidectomy with colostomy. Port-A-Cath is warranted for postoperati ve adjuvant chemotherapy. DESCRIPTION OF PROCEDURE: Informed consent obtained from the patient who was brought to the operati ng room and placed in supine position. Following general anesthesia, chest wall is sterilely preppe d and draped in the usual fashion. The skin below the left clavicle was anesthetized with 0.5% Dandre uri with epinephrine. The left subclavian vein was cannulated with an 18 gauge introducer needle r eturning dark venous blood. A guidewire was passed through this needle and advanced into the left s ubclavian vein without resistance. A stab incision is made adjacent to the guidewire using an 11 sc alpel. A dilator was passed over the guidewire dilating subcutaneous tissues. Finally, a dilator a nd introducer sheath were then advanced over the guidewire as a unit and advanced into the left subc lavian vein without resistance and proper placement was confirmed by fluoroscopy. The dilator and g uidewire were removed as a unit. Port-A-Cath catheter was introduced through the introducer sheath and advanced into the left subclavian vein without resistance. The peel away catheter is removed le aving the catheter in place. The catheter was fashioned to length under fluoroscopy and connected t o MediPort well. A subcutaneous pocket was raised using cautery with good hemostasis. The port was secured to the an terior chest wall using interrupted sutures of 3-0 nylon. Dark venous blood was aspirated from the port, which was flushed first with saline followed by straight heparin. Once the catheter was imbedded in the subcutaneous pocket, subcutaneous tissues were approximated ov er the port using interrupted sutures of 3-0 Monocryl. The skin is then closed using a running stit ch of 4-0 Monocryl suture in subcuticular fashion. Dermabond was applied over the incisions. The patient tolerated the operation without any apparent complications. Portable chest x-ray was ob tained, which reveals proper placement of the port and catheter. No pneumothorax present.
[2017-03-30] MEDS ORDERED: Potassium Chloride 20 MEQ TAB PO SCH (15:00)
--- NOTE | 2017-03-30 15:02 | CT ---
CT OF THE THORAX WITH IV CONTRAST: Date: 03/30/17 INDICATION: History of cancer; staging exam. COMPARISON: Prior CT of the abdomen and pelvis from [facility] dated 03/21/17. FINDINGS: There are small bilateral pleural effusions with bibasilar consolidation likely related to [id number] ng compressive atelectasis. A component of pneumonia cannot be entirely exclude. No suspicious pulmo nary nodule is evident within the visualized aerated lung. There is a small, sub-4 mm, pulmonary nod ule within the right upper lobe adjacent to the right minor fissure on image 35 of series 3. No defi nite acute osseous abnormality is evident. There is a left chest wall port in place. There is a smal l amount of gas seen within the left subclavicular region, as well as along the left chest wall, lik maureen related to recent placement of the MediPort. No pathologically enlarged lymph nodes are evident. The heart and great vessels appear within normal limits. Tiny hypodensities within the right hepati c lobe are stable to the recent comparison examination. There is heterogeneous enhancement of the li bushra, likely related to phase of contrast administration. IMPRESSION: 1. No definite evidence of metastatic disease to the thorax. 2. Small bilateral pleural effusions. 3. Bibasilar air space consolidation likely is related to compressive atelectasis from the effusion ; however, pneumonia cannot be entirely exclude. Recommend correlation. 4. Likely new placement of a left chest wall MediPort. A small amount of soft tissue gas is seen al dede the port site, as well as within the left subclavicular region. POS: [facility]
[2017-03-30 16:16] VITALS: BP 142/84; TEMP 98.1
[2017-03-30] MEDS ORDERED: ISOVUE-370 76%-LOCM 1 ML ONE (16:25)
[2017-03-30] MEDS ORDERED: Amoxicillin/Potassium Clav 875 MG TAB PO SCH (21:00)
--- NOTE | 2017-03-31 05:15 | DIS-2 ---
DATE OF ADMISSION: 03/22/2017 DATE OF DISCHARGE: 03/30/2017 RESIDENT: Cali Art MD ADMITTING ATTENDING: Alison Jones D.O. DISCHARGE ATTENDING: Aries Jamison M.D. CONSULTATIONS: Consult for Case Management, for Oncology, for Wound Care, for Gastroenterology, and for General Surgery. PROCEDURES: 1. A flexible sigmoidoscopy with biopsy. 2. Exploratory laparotomy with sigmoidectomy and end colostomy. 3. Ostomy revision. 4. MediPort placement. PRIMARY DIAGNOSES: 1. Invasive adenocarcinoma of the sigmoid colon. 2. Obstruction of the colon. 3. Hypokalemia. 4. Hypophosphatemia. SECONDARY DIAGNOSIS: Hypertension. DISCHARGE MEDICATIONS: 1. Tramadol 50 mg. 2. Amlodipine 5 mg. 3. Augmentin 875 mg p.o. daily. 4. Potassium chloride 20 mEq. DISCONTINUED MEDICATIONS: None. HISTORY OF PRESENT ILLNESS AND HOSPITAL COURSE: This is a 37-year-old male who presents with left l ower quadrant abdominal pain for 3-4 months, worsening constipation and obstipation over the past da y. The patient was transferred from [place]. The patient endorses night sweats, subjective fever s, nausea, and vomiting. The patient has vomited overnight times today, nonbloody. He was found in an outside ER to have a colonic large intestine obstruction with some dilation of the colon proxima l to that and was transferred for treatment of the obstruction. The patient was made n.p.o. He was seen by General Surgery and Dr. Steen. Dr. Steen did a flex sig and did some multiple biopsies o f the site. He found a mass 25 cm from the anorectal verge and the patient was then referred on to General Surgery for operative intervention of the obstruction and of the mass. Dr. Kimbrough in General Surgery then took the patient back, did an exploratory laparotomy with a sigmoidectomy and an end c olostomy. Then, the patient recovered well from that procedure, showed some small output from his c olostomy site but was having a lot of output from his NG tube that continued on for several days. Dr. Kaylan Louis reevaluated the patient and noticed that they are mostly just gastric secretions comi ng from his NG tube and the patient then had the NG tube taken out and was started on a clear liquid diet. The clear liquid diet was then progressed from there to a full liquid diet and then the next day to a regular diet. The patient then was recovering well, had good pain control and then went f or a MediPort placement. He tolerated that procedure as well with no complications. The patient al so had a chest CT scan done while he was here for history of cancer and staging exam, the impression on that showed no definite evidence of metastatic disease to the thorax, small bilateral pleural ef fusions, bibasilar airspace consolidation likely is related to compressive atelectasis from the effu rasta; however, pneumonia cannot be entirely excluded and recommend correlation and likely new placem ent of a left chest wall MediPort. A small amount of soft tissue gas is seen along the port site as well as within the left subclavicular region. The patient continued to improve throughout his hosp ital stay and will be following up with Dr. Kimbrough in the coming weeks as well as his primary care pr radha. He also will be hooked up with our Oncology Service here with Mariel Judd, an COUNTERINTELLIGENCE/HUMINT SPECIALIST, with Onc ology Department at [facility] in [place], [place]. The patient was also found to be hypertensive d uring his hospitalizations here and was started on amlodipine at that time for outpatient treatment. He will need outpatient follow up for that as well. During this hospitalization, he also had prob lems with some of his electrolyte imbalances. He had significant problems with his potassium and hi s potassium at its lowest was 2.9 and at its highest was 3.8 that is why he will be discharged with 20 mEq a day with close followup with his primary care physician. While he was n.p.o. for several d ays, his phosphorus level did go down to 1.5, it is now normalized to 3.2 on the day of discharge. We also tracked his magnesium that was never out of the normal range and on the day of discharge, it was 2.1. The patient had a CEA level notable of 12.42, indicative of likely a neoplastic process. He had biopsies that showed invasive moderately-differentiated colonic adenocarcinoma from the larg e intestine, specimen biopsy at 25 cm. As of this, the patient will likely need to have the chemoth erapy and close oncologic followup for that condition. He will also have some follow up with Dr. Brian torres who said that he would likely reattach the colon to his rectum sometime in the future, somewhere between 1 and 3 months. The patient otherwise had no other problems during this hospitalization, s lowly and steadily improved and had adequate pain control during the entire time. He was discharged on 03/30/2017 in adequate condition and he will have a close followup with his team of physicians. DISPOSITION: Stable. DISCHARGE INSTRUCTIONS: 1. Location: He will be discharged home into his own care. 2. Diet will be as tolerated, no restrictions. 3. Activity: No restrictions as tolerated, but we do recommend he take it easy since he did have s uch a large surgery and kind of a busy hospitalization. 4. Follow up will be with Dr. Kimbrough for his surgery and then also with Dr. Siegel, his primary care [facility] in [place], [place]. We wish him the best of luck and hope that he can fight this neoplastic process off and he can live a long and healthy life.
== END 2017-03-30 17:16 | disposition home health service (06) | DRG 330 ==
LOC: ERS 00:07 → ONC 02:26 → SURG B 03-23 14:29
PROVIDERS: ADMIT Family Medicine; ATTEND Family Medicine
PROC: 0DBN8ZX Excision of Sigmoid Colon, Via Natural or Artificial Opening Endoscopic, Diagnostic (ICD-10-PCS; 2017-03-22)
PROC: 0DTN0ZZ Resection of Sigmoid Colon, Open Approach (ICD-10-PCS; principal; 2017-03-23)
PROC: 0D1M0Z4 Bypass Descending Colon to Cutaneous, Open Approach (ICD-10-PCS; 2017-03-23)
PROC: 3E0T3BZ Introduction of Anesthetic Agent into Peripheral Nerves and Plexi, Percutaneous Approach (ICD-10-PCS; 2017-03-23)
PROC: 0DBM0ZZ Excision of Descending Colon, Open Approach (ICD-10-PCS; 2017-03-25)
PROC: 0JH63WZ Insertion of Totally Implantable Vascular Access Device into Chest Subcutaneous Tissue and Fascia, Percutaneous Approach (ICD-10-PCS; 2017-03-30)
PROC: 02HV33Z Insertion of Infusion Device into Superior Vena Cava, Percutaneous Approach (ICD-10-PCS; 2017-03-30)
PROC: B518YZA Fluoroscopy of Superior Vena Cava using Other Contrast, Guidance (ICD-10-PCS; 2017-03-30)
DX: C18.7 Malignant neoplasm of sigmoid colon (principal); K94.09 Other complications of colostomy; I96 Gangrene, not elsewhere classified; J90 Pleural effusion, not elsewhere classified; K56.609 Unspecified intestinal obstruction, unspecified as to partial versus complete obstruction; J98.11 Atelectasis; E83.39 Other disorders of phosphorus metabolism; E87.6 Hypokalemia; Z72.0 Tobacco use; R59.9 Enlarged lymph nodes, unspecified; G89.18 Other acute postprocedural pain; I10 Essential (primary) hypertension
CPT/HCPCS: 36415; 36416; 71010; 71260; 74000; 80048; 80053; 82088; 82378; 83735; 84100; 85025; 85610; 85730; 86850; 86900; 86901; 88305; 88309; 96361; 96374; 96375; A4216; C1788; C9113; J0131; J0360; J0670; J0696; J1100; J1335; J1642; J1650; J1885; J1940; J2001; J2250; J2270; J2405; J2543; J2550; J2704; J2765; J2795; J3010; J3475; J3480; J7050; P9045; S0020

== ENCOUNTER 2017-10-19 06:58 | Inpatient (IN) | payer MEDICARE, MEDICAID ==
[2017-10-18 10:50] VITALS: BMI 25.4
[2017-10-19] MEDS ORDERED: Ertapenem 1 GM in Sodium Chloride 0.9% 100 ML IVPB SCH (07:45)
[2017-10-19] MEDS ORDERED: cefOXitin 2 GM, Syringe 1 ML in Sterile Water 10 ML SLOW IVP SCH (08:00)
[2017-10-19 08:41] LABS: #Basophils 0.1 thou/uL (0.0-0.2); #Eosinphils 0.2 thou/uL (0.0-0.7); #Monocytes 0.8 thou/uL (0.11-0.59); #Neutrophils 2.6 thou/uL (1.40-6.50); %Basophils 1.2 % (0.0-1.0); %Lymphocytes 34.7 % (21.0-51.0); %Monocytes 14.4 % (0.0-10.0); %Neutrophils 45.8 % (42.0-75.0); Hemoglobin 14.1 g/dL (14.0-18.0); Mean Corpuscular HGB CONC 33.4 g/dL (32.0-36.0); Mean Corpuscular Hemoglobin 30.5 pg (27.0-31.0); Mean Corpuscular Volume 91.2 fl (80.0-94.0); Mean Platelet Volume 7.5 fL (7.4-10.4); Platelet Count 208 thou/uL (130-400); Red Blood Cell (RBC) Count 4.63 mill/uL (4.70-6.10); White Blood Cell (WBC) Count 5.6 thou/uL (4.8-10.8)
[2017-10-19 08:48] LABS: PTT 27.8 SEC (22.9-36.1); Prothrombin Time 13.7 SEC (12.0-14.7)
[2017-10-19 08:49] LABS: Hemoglobin A1c 4.6 % (4.0-6.0)
[2017-10-19 09:10] LABS: ALT (SGPT) 8 U/L (8-55); AST (SGOT) 18 U/L (5-34); Albumin 4.5 g/dL (3.5-5.0); Alkaline Phosphatase 77 U/L (40-150); Anion Gap 11 mmol/L (10-20); BUN (Urea Nitrogen) 9 mg/dL (8.9-20.6); Bilirubin, Total 0.5 mg/dL (0.2-1.2); Calc. Creatinine Clearance 123 mL/min (70-130); Calcium 9.4 mg/dL (7.8-10.44); Carbon Dioxide 30 mmol/L (22-29); Chloride 101 mmol/L (98-107); Estimated GFR-MDRD Greater than 90; Globulin 3.1 g/dL (2.4-3.5); Glucose 96 mg/dL (70-105); Potassium 3.7 mmol/L (3.5-5.1); Protein, Total 7.6 g/dL (6.0-8.3); Sodium 138 mmol/L (136-145)
[2017-10-19] MEDS ORDERED: Midazolam HCl 2 mg/2 ml Vial ONE (10:01)
[2017-10-19] MEDS ORDERED: Fentanyl 100 MCG/2 ML VIAL ONE ×2 (10:01)
[2017-10-19 10:59] LABS: Magnesium 2.5 mg/dL (1.6-2.6)
[2017-10-19] MEDS ORDERED: Rocuronium Bromide 50 MG/5 ML VIAL ONE (11:54)
[2017-10-19] MEDS ORDERED: PHENYLEPHRINE-NS 100 MCG/ML 10 ML SYRINGE ONE (12:18)
[2017-10-19] MEDS ORDERED: Lidocaine 1% PF 5 ML VIAL ONE (12:18)
[2017-10-19] MEDS ORDERED: Dexamethasone 20 MG/5 ML VIAL ONE (12:18)
[2017-10-19] MEDS ORDERED: Ketorolac Tromethamine 30 MG/ML VIAL ONE (12:18)
[2017-10-19] MEDS ORDERED: PROPOFOL 200 MG/20 ML VIAL ONE (12:18)
[2017-10-19] MEDS ORDERED: HYDROmorphone 0.5 MG/0.5 ML SYRINGE ONE ×2 (12:38→14:38)
[2017-10-19] MEDS ORDERED: cefOXitin 2 GM VIAL ONE (13:33)
[2017-10-19] MEDS ORDERED: diphenhydrAMINE 50 MG/ML VIAL IVP PRN (14:55)
[2017-10-19] MEDS ORDERED: Naloxone HCl 0.4 mg/ml Vial IV PRN (14:55)
[2017-10-19] MEDS ORDERED: HYDROmorphone 10 mg/100 ml CADD IVPB PRN (14:55)
[2017-10-19] MEDS ORDERED: diphenhydrAMINE 25 MG CAP PO PRN (14:55)
[2017-10-19] MEDS ORDERED: Ondansetron HCl/PF 4 MG/2 ML Vial IVP PRN ×3 (14:55→15:02)
[2017-10-19] MEDS ORDERED: Zolpidem Tartrate 5 MG TAB PO PRN (14:55)
[2017-10-19] MEDS ORDERED: HumaLOG 300 UNITS/3 ML VIAL SC PRN (14:55)
[2017-10-19] MEDS ORDERED: diphenhydrAMINE 50 MG/ML VIAL IM PRN (14:55)
[2017-10-19] MEDS ORDERED: hydrALAZINE 20 MG/ML VIAL SLOW IVP PRN (14:55)
[2017-10-19] MEDS ORDERED: Promethazine HCl 25 MG/ML VIAL IM PRN ×3 (14:55→15:02)
[2017-10-19] MEDS ORDERED: Communication Order-Pharmacy FS SCH (15:00)
[2017-10-19] MEDS ORDERED: Promethazine HCl 25 MG/ML VIAL SLOW IVP PRN (15:02)
[2017-10-19] MEDS ORDERED: Sodium Chloride 0.9% 1,000 ML IV SCH (16:45)
[2017-10-19] MEDS: Acetaminophen 1,000 MG in Premix Bag 1 BAG IVPB SCH ×2 (17:28→23:18)
[2017-10-19] MEDS: Ketorolac Tromethamine 30 MG/ML VIAL IVP SCH ×2 (17:28→23:18)
[2017-10-19] MEDS: Enoxaparin Sodium 40 MG/0.4 ML SYRINGE SC SCH (20:43)
[2017-10-19] MEDS: Famotidine 40 MG/4 ML VIAL SLOW IVP SCH (20:43)
[2017-10-19] MEDS: Famotidine 20 MG TAB PO SCH (20:44)
--- NOTE | 2017-10-19 20:56 | OP ---
DATE OF OPERATION: 10/19/2017 PREOPERATIVE DIAGNOSIS: Colon cancer, status post sigmoidectomy with end colostomy. POSTOPERATIVE DIAGNOSES: 1. Colon cancer, status post sigmoidectomy with end colostomy. 2. Extensive intra-abdominal adhesions. OPERATIONS PERFORMED: 1. Exploratory laparotomy. 2. Extensive adhesiolysis. 3. Partial colectomy with end-to-end colorectal anastomosis. 4. Take down of splenic and hepatic flexors. 5. Colostomy closure. 6. Explantation of a left subclavian Port-A-Cath. SURGEON: Kirk Kimbrough DO ANESTHESIA: General endotracheal. ESTIMATED BLOOD LOSS: 150 mL. FLUIDS GIVEN: 2400 mL crystalloids. SPONGE AND INSTRUMENT COUNT: Certified as correct x2. COMPLICATIONS: None apparent at the time of operation. INDICATIONS FOR PROCEDURE: A 37-year-old -Citizen Of [place] man with colon cancer, who is status post adjuvant chemotherapy following sigmoidectomy with end colostomy. The patient presented for colostom y closure. Findings are consistent with extensive intra-abdominal adhesions. DESCRIPTION OF PROCEDURE: Informed consent was obtained from the patient, who was brought to the ope rating room and placed in supine position. Following general anesthesia, the patient was placed in t he lithotomy position. The colostomy site was sutured closed. Singletary catheter was sterilely placed a nd passed to bedside drain. The abdomen was then sterilely prepped and draped in the usual fashion. A midline incision is made using a #10 scalpel. An incision is carried through subcutaneous tissues maintaining hemostasis using thermocautery. Fascia was incised in midline using cautery exposing th e peritoneum beneath, which was grasped x2 with hemostats. The peritoneal cavity was sharply entered using Metzenbaum scissors. Upon entrance into the peritoneal cavity, extensive amount of intra-abdo russell adhesions was encountered involving almost all the entire small bowel loops, adherent to the pe lvic, colon as well as to the anterior abdominal wall. Meticulous take down of the adhesions ensued using Metzenbaum scissors. Adhesiolysis took almost 90 minutes. We were then able to run the small bowel from the ligament of Treitz down to terminal ileum, finding no pathology. Normal appendix is n oted in the usual anatomic location. Gallbladder is also noted in the usual anatomic location devoid of stones. Liver is palpated of any abnormalities or implants. The spleen is noted in the usual an atomic location, again palpated free of any abnormalities. The stomach is palpated free of any adrian s. I then inspected the colon from the cecum through the ascending, transverse, descending colon jody n to the level of the colostomy, no pathology is noted. Omentum was free of any implants. Finding n o other pathology, we decided therefore to proceed with the surgery. At this juncture, the rectal st ump was dissected free from surrounding structures. I then divided the proximal rectal stump with a contour stapler to allow us to have fresh edges for anastomosis. The left colon was then mobilized a long the white line of Toldt. Using a reload of the contour stapler, the colon was divided right bef ore the exit to the colostomy site. We noted that the distal 6-8 inches did not appear to be quite w ell perfused. Decision was made therefore to excise this. We then used a reload of the stapler to d ivide the colon here. Mesentery of the specimen was sterilely divided using LigaSure device with goo d hemostasis. At this juncture, we then proceeded with the colorectal anastomosis. Anal vault was d ilated to 33 with an old dilator. We chose therefore to use a 29 EEA stapler. This was brought to located within [facility] operative field. The Anvil was then secured into the distal colon with a pursestring suture. Aft er the anorectal region was dilated with a an old dilator, the 29 EEA stapler was introduced by my as sistant and visualized within the abdominal cavity by myself. The spike was deployed right in the ce nter of the rectal stump under direct vision. This was then connected to the Anvil. The stapler was fired in the usual fashion. Once adequate firing of the stapler was ensured, it was removed max gordon. Functional end-to-end colorectal anastomosis was perfected then. This was tested under saline with air insufflation per rectum and no air leaks were noted. The abdominal cavity was copiously ir rigated with saline solution at this juncture. All sponges and instruments were removed and accounte d for. The previous colostomy site was excised in elliptical fashion, carrying incision through subc utaneous tissues maintaining hemostasis using thermocautery. Once the colostomy was explanted, the f ascial defect was closed using interrupted sutures of #1 PDS. The defect was also closed within the abdominal cavity again using interrupted sutures of #1 PDS. Again, the small bowel was run from liga ment of Treitz down to terminal ileum. One area of a serosal tear was imbricated using a 3-0 silk cuenca ture in a Lembert fashion. Small bowel having been returned to normal anatomic location. Four piece s of large Seprafilm were placed between small bowel loops and then over the entire abdomen prior to return of omentum. A #19 Apolinar drain was introduced into the deep pelvis allowed to exit the abdomin al cavity through a separate stab incision. The drain was secured to intraabdominal wall using 2-0 s ilk suture. Fascia was approximated in the midline using a running stitch of #1 single stranded PDS. Subcutaneous tissues irrigated clear with saline solution perfecting hemostasis using thermocautery . Skin incisions closed using running stitch of 3-0 Monocryl in a subcuticular fashion. Dermabond w as applied over the incision. The colostomy incision site was then approximated using interrupted cuenca tures of 2-0 nylon. I then turned my attention to the left subclavian Port-A-Cath. Under fresh gown and glove, the chest wall being prepped and draped. A transverse incision is made over the Port-A-C ath using a #10 scalpel. Incision was carried through subcutaneous tissues maintaining hemostasis us ing thermocautery. The Port-A-Cath was then grasped with a towel clip and elevated. Stay sutures we re excised. The Port-A-Cath with the catheter was then removed intact and passed off the operative f ield to be sent to pathology. Direct pressure was applied to achieve hemostasis. Deep tissues were approximated using interrupted sutures of 3-0 Monocryl. The skin incision was closed using a running stitch of 4-0 Monocryl in a subcuticular fashion. Dermabond was applied over this. The patient triny erated the operation without any apparent complication and was returned to the recovery room in [employer] condition.
[2017-10-19] MEDS ORDERED: Prevnar 13-Val Conj/PF 0.5 ML SYRINGE IM ONE (21:00)
[2017-10-19] MEDS ORDERED: Famotidine/PF 20 mg/2ml Vial SLOW IVP SCH (21:00)
[2017-10-19] MEDS ORDERED: cefOXitin 2 GM in Sodium Chloride 0.9% 100 ML IVPB SCH (22:00)
[2017-10-19] MEDS: cefOXitin 2 GM, Syringe 1 ML in Sterile Water 10 ML SLOW IVP SCH (22:12)
[2017-10-19] MEDS: Lactated Ringer's 1,000 ML IV SCH (22:14)
[2017-10-20 04:42] LABS: #Eosinphils 0.1 thou/uL (0.0-0.7); #Lymphocytes 1.7 thou/uL (1.20-3.40); #Monocytes 0.9 thou/uL (0.11-0.59); #Neutrophils 6.6 thou/uL (1.40-6.50); %Basophils 0.5 % (0.0-1.0); %Eosinophils 0.5 % (0.0-10.0); %Lymphocytes 17.9 % (21.0-51.0); %Monocytes 9.9 % (0.0-10.0); %Neutrophils 71.2 % (42.0-75.0); Hemoglobin 13.7 g/dL (14.0-18.0); Mean Corpuscular HGB CONC 33.2 g/dL (32.0-36.0); Mean Corpuscular Hemoglobin 31.1 pg (27.0-31.0); Mean Corpuscular Volume 93.6 fl (80.0-94.0); Mean Platelet Volume 7.9 fL (7.4-10.4); Platelet Count 196 thou/uL (130-400); RBC Distribution Width 11.9 % (11.5-14.5); Red Blood Cell (RBC) Count 4.39 mill/uL (4.70-6.10); White Blood Cell (WBC) Count 9.3 thou/uL (4.8-10.8)
[2017-10-20 05:03] LABS: Anion Gap 9 mmol/L (10-20); BUN (Urea Nitrogen) 9 mg/dL (8.9-20.6); Calc. Creatinine Clearance 125 mL/min (70-130); Calcium 8.1 mg/dL (7.8-10.44); Carbon Dioxide 28 mmol/L (22-29); Chloride 104 mmol/L (98-107); Estimated GFR-MDRD Greater than 90; Glucose 109 mg/dL (70-105); Magnesium 1.7 mg/dL (1.6-2.6); Phosphorus 3.7 mg/dL (2.3-4.7); Sodium 137 mmol/L (136-145)
[2017-10-20] MEDS: cefOXitin 2 GM, Syringe 1 ML in Sterile Water 10 ML SLOW IVP SCH (05:08)
[2017-10-20] MEDS: Acetaminophen 1,000 MG in Premix Bag 1 BAG IVPB SCH ×2 (05:08→13:00)
[2017-10-20] MEDS: Ketorolac Tromethamine 30 MG/ML VIAL IVP SCH ×4 (05:08→23:21)
[2017-10-20] MEDS: Lactated Ringer's 1,000 ML IV SCH ×5 (05:17→23:23)
[2017-10-20] MEDS: Famotidine 40 MG/4 ML VIAL SLOW IVP SCH ×2 (09:24→20:51)
[2017-10-20] MEDS: Famotidine 20 MG TAB PO SCH ×2 (09:24→20:52)
--- NOTE | 2017-10-20 16:02 | PRG ---
DATE OF SERVICE: 10/20/2017 SUBJECTIVE: Mr. Reyes is a 37-year-old -[place] man who has a history of colon cancer, status post sigmoidectomy with end colostomy, who has completed his adjuvant chemotherapy. The patient ret urned yesterday for colostomy closure. Following the uneventful operation, the patient has returned to the surgical floor. Currently, he reports adequate pain control. He ambulates with minimum diffi culty. Urinary output is adequate. The patient reports no nausea or vomiting. PHYSICAL EXAMINATION: VITAL SIGNS: Currently includes blood pressure 116/68, pulse 68, respiratory rate 20, temperature 97 .7 degrees Fahrenheit, oxygen saturation is 93% on room air. HEENT: Reveals normocephalic and atraumatic. Pupils are equal, round, reactive to light and accommo dation. Extraocular muscles are intact bilaterally. He has no sclerae icterus present. Oral mucosa is pink and moist. No lesions are noted. NECK: Supple. No palpable lymphadenopathy or thyromegaly present. HEART: Reveals regular rate and rhythm, no murmurs or gallops auscultated. CHEST: Clear to auscultation bilaterally. Breathing regular and unlabored. ABDOMEN: Soft and nondistended. EXTREMITIES: Reveals 2+ radial and pedal pulses bilaterally. No ankle edema is present. LABORATORY DATA: Today includes CBC with 9200 white blood cells, hemoglobin and hematocrit are stabl e at 13.7 and 41.1 respectively. Platelet count is 196,000. Metabolic profile: Sodium 137, potassi um is 4.0, chloride is 104, bicarbonate is 28, BUN is 9, creatinine 1.01, glucose is 109, magnesium 1 .7, phosphorus 3.7. IMPRESSION: 1. Postoperative day #1 status post exploratory laparotomy with colorectal anastomosis and end colos milly closure. 2. Acute hypomagnesemia. PLAN: 1. Correct abnormal electrolytes. 2. Increase activity as tolerated. The patient is otherwise hemodynamically stable.
[2017-10-20] MEDS: Enoxaparin Sodium 40 MG/0.4 ML SYRINGE SC SCH (20:51)
--- NOTE | 2017-10-21 01:53 | PRG ---
DATE OF SERVICE: 10/20/2017 SUBJECTIVE: The patient is status post exploratory laparotomy with colorectal anastomosis and end-co lostomy closure. The patient today has been tolerating ice chips. Nurses report that he has been am bulatory, but denies return of bowel function. Denies nausea or vomiting. Urinary output is approxi mately 600 for the 12 hours during the day, which is adequate for this patient. OBJECTIVE: VITAL SIGNS: Temperature is 100, pulse 93, blood pressure 143/75, respirations 20, oxygen saturation is95% on room air. GENERAL: The patient is currently asleep, resting comfortably, and appears in no distress. ASSESSMENT: Status post exploratory laparotomy with above procedures. PLAN: Plan will be to continue ice chips and supportive care, and await bowel function return.
[2017-10-21] MEDS: Ketorolac Tromethamine 30 MG/ML VIAL IVP SCH ×3 (05:02→18:11)
[2017-10-21] MEDS: Famotidine 40 MG/4 ML VIAL SLOW IVP SCH ×2 (09:04→21:24)
[2017-10-21] MEDS: Famotidine 20 MG TAB PO SCH ×2 (09:04→21:19)
[2017-10-21] MEDS: Lactated Ringer's 1,000 ML IV SCH (09:04)
[2017-10-21] MEDS ORDERED: traMADol HCl 50 MG TAB PO PRN (09:36)
[2017-10-21] MEDS ORDERED: traMADol HCl 50 MG TAB PO SCH (10:00)
[2017-10-21] MEDS: Acetaminophen 500 MG TAB PO SCH ×3 (10:40→21:26)
--- NOTE | 2017-10-21 13:14 | PRG ---
DATE OF SERVICE: 10/21/2017 SUBJECTIVE: Chemo Reyes is a 37-year-old male postop day 2 status post colostomy takedown and removal of left subclavian Port-A-Cath. Overnight, the patient had no acute events. This morning he reports pain is improved from yesterday. He has increased ambulation. He states that he is having flatus a nd had a bowel movement earlier this morning. He denies any nausea or vomiting. OBJECTIVE: VITAL SIGNS: Temperature 99.4, pulse 88, respiration rate 18, O2 sat 95% on room air, blood pressure 145/81. GENERAL: Well-developed male in no acute distress, sitting in a chair, out of bed. HEENT: Head is normocephalic, atraumatic. PULMONARY: Normal work of breathing, symmetric rise. Lungs are clear to auscultation bilaterally. CARDIOVASCULAR: Regular rate and rhythm. GASTROINTESTINAL: The abdomen is soft, nontender, nondistended. Surgical dressing is clean, dry, an d intact. Bowel sounds are hypoactive, but present. MUSCULOSKELETAL: Moves all extremities x4. NEUROLOGIC: No focal deficit noted. ASSESSMENT: 1. Postop day #2 status post exploratory laparotomy with colorectal anastomosis and end colostomy cl osure. 2. Acute pain. PLAN: Continue to increase activity as tolerated. The importance of his incentive spirometry and pu lmonary toileting discussed with patient. Advance diet to clear liquid diet. The patient reports mi nimal pain at this time. We will start p.o. pain regimen. Discontinue IV fluids. The patient educa lorrie and the importance of reporting any nausea or vomiting to nursing or staff. All questions were a nswered at the time of this dictation. The patient discussed with Dr. Kimbrough.
[2017-10-21] MEDS: Enoxaparin Sodium 40 MG/0.4 ML SYRINGE SC SCH (21:19)
[2017-10-22] MEDS: Ketorolac Tromethamine 30 MG/ML VIAL IVP SCH ×2 (00:55→04:57)
[2017-10-22] MEDS: Acetaminophen 500 MG TAB PO SCH (04:57)
[2017-10-22] MEDS: Famotidine 20 MG TAB PO SCH ×2 (07:29→20:36)
[2017-10-22] MEDS: Acetaminophen 325 MG TAB PO SCH ×3 (11:44→22:46)
--- NOTE | 2017-10-22 12:22 | PRG ---
DATE OF SERVICE: 10/22/2017 SUBJECTIVE: This is a 37-year-old male postop day 3 status post colostomy takedown and removal of le ft subclavian Port-A-Cath. Overnight, the patient had no acute events. He reports having additional bowel movements overnight and continues to pass flatus. He is tolerating a clear liquid diet. He d enies any nausea or vomiting. OBJECTIVE: VITAL SIGNS: Temperature 97.8, pulse 69, respiration 14, O2 sat 93% on room air, blood pressure 138/ 88. GENERAL: Well-developed male, in no acute distress, resting in bed. HEENT: Normocephalic, atraumatic. PULMONARY: Normal breathing. Symmetric rise and incentive spirometry 1388-4860 mL. CARDIOVASCULAR: Regular rate and rhythm. GASTROINTESTINAL: Abdomen is soft with very mild generalized tenderness, nondistended. SCOOBY drain wit h minimal serous output approximately 40 mL past 24 hours. Right lower quadrant dressing with mild s erosanguineous staining. Midline incision is clean, dry, and intact. MUSCULOSKELETAL: Moves all extremities x4. NEUROLOGIC: No focal deficit noted. ASSESSMENT: 1. Postoperative day #3 status post exploratory laparotomy with colorectal anastomosis and end colos milly closure. 2. Acute pain. PLAN: The patient is tolerating a clear liquid diet and mobilizing well. Pain is well controlled. We will advance diet to full liquids today and continue to evaluate. Continue pain regimen as angel d. Importance of mobility and incentive spirometry discussed. The patient was discussed with trauma /surgical attending. Drain will be removed.
[2017-10-22] MEDS: Ibuprofen 800 MG TAB PO SCH ×2 (16:23→22:45)
[2017-10-22] MEDS: HYDROcodone/Acetaminophen 5/325 mg Tablet PO PRN ×2 (16:24→20:36)
[2017-10-22] MEDS: Enoxaparin Sodium 40 MG/0.4 ML SYRINGE SC SCH (20:36)
[2017-10-23] MEDS: Ibuprofen 800 MG TAB PO SCH ×2 (06:11→13:32)
[2017-10-23] MEDS: Acetaminophen 325 MG TAB PO SCH ×3 (06:11→18:15)
[2017-10-23] MEDS: Famotidine 20 MG TAB PO SCH (09:04)
[2017-10-23 15:38] VITALS: TEMP 99
[2017-10-23 16:00] VITALS: BP 159/104
[2017-10-23] MEDS ORDERED: Furosemide 20 MG/2 ML VIAL SLOW IVP SCH (17:00)
[2017-10-24] MEDS ORDERED: Amlodipine 5 MG TAB PO SCH (09:00)
--- NOTE | 2017-10-25 05:23 | PRG ---
DATE OF SERVICE: 10/23/2017 SUBJECTIVE: Chemo Reyes is a 37-year-old male, postop day 4, status post colostomy removal of le ft subclavian Port-A-Cath. Patient had no acute overnight events. He continues to report passage of flatus and bowel movements. He is tolerating a full liquid diet. He denies any nausea or vomiting. Pain is controlled via p.o. analgesics. OBJECTIVE: VITAL SIGNS: Temperature 98.7, pulse 60, respirations 16, O2 sat 95% on room air, blood pressure 142 /79. GENERAL: A well-developed male, in no acute distress. Sitting in chair, out of bed. PULMONARY: Normal work of breathing. Symmetric rise. Incentive spirometry 2440-9331 mL. CARDIOVASCULAR: Regular rate and rhythm. GASTROINTESTINAL: Abdomen is soft, nondistended. No signs of peritonitis, guarding, or rigidity. MUSCULOSKELETAL: Moves all extremities x4. NEUROLOGIC: No focal deficit noted. ASSESSMENT: 1. Postoperative day #4 status post exploratory and laparotomy with colorectal anastomosis and colos milly closure and removal of left subclavian Port-A-Cath. 2. Acute pain. PLAN: Patient is tolerating a full liquid diet and mobilizing well. Advanced to regular diet today. Continue supportive care as ordered. The patient is motivated and [place]. Patient discussed with Dr. Kimbrough.
== END 2017-10-23 19:40 | disposition home or self-care (01) | DRG 331 ==
LOC: SURG A 06:58 → SURG B 16:19
PROVIDERS: ADMIT Surgery; ATTEND Surgery
PROC: 0DBK0ZZ Excision of Ascending Colon, Open Approach (ICD-10-PCS; principal; 2017-10-19)
PROC: 0DBE0ZZ Excision of Large Intestine, Open Approach (ICD-10-PCS; 2017-10-19)
PROC: 0DN80ZZ Release Small Intestine, Open Approach (ICD-10-PCS; 2017-10-19)
PROC: 0DNW0ZZ Release Peritoneum, Open Approach (ICD-10-PCS; 2017-10-19)
PROC: 0JPT0WZ Removal of Totally Implantable Vascular Access Device from Trunk Subcutaneous Tissue and Fascia, Open Approach (ICD-10-PCS; 2017-10-19)
DX: Z43.3 Encounter for attention to colostomy (principal); E83.42 Hypomagnesemia; K66.0 Peritoneal adhesions (postprocedural) (postinfection)
CPT/HCPCS: 36415; 80048; 80053; 83036; 83735; 84100; 85025; 85610; 85730; 86850; 86900; 86901; 88304; 88307; A4216; J0131; J0694; J1100; J1170; J1335; J1650; J1885; J1940; J2001; J2250; J2704; J3010; J7050